=== PATIENT | male | born 1950 | race Caucasian/White ===

== ENCOUNTER → 2017-12-16 | Outpatient (CLI) | payer BC ==
[~2017-12-16] MED LIST: AMT25 PO; CELE1CAP30 PO; HYDR-5688 PO; MULT-506 PO; PRAV40TA2 PO
== END | disposition home or self-care (01) ==
LOC: C.LAB 13:05
PROVIDERS: ATTEND Family Medicine Adolescent Medicine
DX: M25.50 Pain in unspecified joint (principal); R51 Headache

== ENCOUNTER → 2018-05-17 | Outpatient (CLI) | payer BC | END | disposition home or self-care (01) | LOC: C.RDSM 10:08 | PROVIDERS: ATTEND Orthopaedic Surgery | DX: R52 Pain, unspecified (principal) ==

== ENCOUNTER 2022-10-02 14:18 | Inpatient (IN) ==
[2022-10-02] MEDS ORDERED: NITROGLYCERIN SL 0.4 MG/TAB TAB SL STA (14:55)
[2022-10-02 15:03] LABS: Basophils # (auto) 0.07 K/uL (0-0.2); Eosinophils # (auto) 0.03 K/uL (0-0.50); Eosinophils % (auto) 0.4 %; Hematocrit (blood only) 40.2 % (40.1-51.0); Immature Granulocytes # (auto) 0.02 K/uL (0.00-0.02); Immature Granulocytes % (auto) 0.3 %; Lymphocytes # (auto) 2.02 K/uL (1.2-3.4); Lymphocytes % (auto) 28.6 %; Mean Corpuscular Hgb Conc 34.8 g/dL (32.0-36.0); Mean Platelet Volume 9.9 fL (9.4-12.4); Monocytes # (auto) 0.46 K/uL (0.24-0.82); Monocytes % (auto) 6.5 %; Neutrophils # (auto) 4.46 K/uL (1.4-6.5); Neutrophils % (auto) 63.2 %; Platelet Count 212 K/uL (130-400); RDW Coefficient of Variation 12.1 % (11.5-14.5); RDW Standard Deviation 40.8 fL (36.4-46.3); Red Blood Count 4.37 M/uL (4.63-6.08); White Blood Count 7.06 K/ul (4.8-10.8)
--- NOTE | 2022-10-02 15:13 | XRay Report ---
SINGLE VIEW CHEST CLINICAL HISTORY: Atypical chest pain. FINDINGS: 2 AP, portable, upright chest radiographs are compared to study dated 10/09/2011 and correl ated with chest CT dated 06/06/2016. The examination is degraded by portable technique and apical lord otic positioning. The heart is mildly enlarged. The pulmonary vasculature is noncongested. Chronic in terstitial thickening is similar to previous. There is bibasilar scarring/atelectasis. The lungs and pleural spaces are otherwise clear. No pneumothorax is seen. The skeletal structures are osteopenic. There are healed left-sided rib fractures. IMPRESSION: Mild cardiomegaly with no acute cardiopulmonary abnormality identified. ACT 112: Negative or not required by law. Electronically signed by: Loi Vann M.D. 10/02/2022 3:12 PM
[2022-10-02 15:14] LABS: Partial Thromboplastin Time 28.5 Seconds (21.0-31.0); Prothrombin Time 10.3 Seconds (9.0-12.0)
--- NOTE | 2022-10-02 15:26 | Emergency Department Note ---
Impression & Plan Hypertension, Left-sided chest pain, Elevated troponin ED Provider Note INFORMANT: Patient ED PROVIDER(S): Ryley Melendez MD CHIEF COMPLAINT: Chest pain PLAN: Disposition: Admitted Condition: Good Outpatient prescription management: none Referral: None patient CBC and chemistry panel were unremarkable. Patient's troponin was MEDICAL DECISION MAKING: Patient presented because of left-sided chest pain. He was hypertensive. Patient was treated with sublingual nitroglycerin. He took 2 aspirin at home. His ECG did not show any acute ischemia. The patient had a negative chest x- ray. Mildly elevated. On reassessment the sublingual nitroglycerin did relieve him of all have his chest pain. He was given Nitropaste. In light of the history and abnormal troponin further management in the hospital will be necessary. Consultation was made with [facility]. Patient was evaluated in the ER for further management. Triage Nursing notes reviewed and agree them. Vital Signs: reviewed and remarkable for hypertension Differential diagnosis: Cardiac ischemia, aortic dissection, pulmonary embolism, pneumothorax, pneumonia, pericarditis, myocarditis, esophageal rupture, GERD, cholecystitis, pancreatitis, musculoskeletal, as well as other pathologies. Diagnostics interpreted by me: ECG: Twelve-lead ECG reveals sinus rhythm with a first-degree AV block and occasional PVCs noted. No ST elevation or depression. Normal intervals. Normal axis. Cardiac Monitoring: Cardiac monitoring ordered by me: The patient was placed on continuous cardiac monitoring and observed. It revealed a normal sinus rhythm at 94 beats per minute without evidence of dysrhythmia. Imaging studies: Chest x-ray. Findings: A chest x-ray was performed and revealed no pneumothorax, effusion, infiltrate, pulmonary edema, free air under the diaphragm, or wide mediastinum. HPI: The patient is a 72year old male who presents to the Emergency Room with complaints of left sided chest pain. This started this morning and is persisting. Pain was worse and has diminished somewhat. The patient also notes the following associated symptoms, left arm pain and upper back pain. The pat ient has taken 2 baby aspirin for 7 relieving factors. Current pain is rated as 7/10. Pain occurred while walking. Patient notes pain increases with walking up steps. Pt denies LOC, headache, fevers, chills, diaphoresis, visual changes, neck pain, breathing difficulties, nausea, vomiting, abdominal pain, back pain, melena, hematochezia, urinary symptoms, numbness, weakness, lymphadenopathy, betty h, or other complaints. ROS: See above HPI for pertinent positives & negatives. A total of 10 systems reviewed and were otherwise negative. PAST MEDICAL HISTORY:See Below , hypertension, traumatic pneumothorax PAST SURGICAL HISTORY:See Below, FAMILY HISTORY:See Below SOCIAL HISTORY:See Below, HOME MEDICATIONS:See Below ALLERGIES:See Below VITALS:See Below PHYSICAL EXAMINATION: GENERAL: Awake, alert, well-appearing, in no distress HENT: Normocephalic, atraumatic. Oropharynx unremarkable. EYES: Normal conjunctiva. Sclera non-icteric. NECK: Inspection normal. Non-tender. Supple. No nuchal rigidity. FROM. No masses. RESPIRATORY: Clear to auscultation. No wheezes. No rales. Normal respiratory effort. CARDIAC: Normal rate. Normal rhythm. No murmurs. No rubs. Extremities warm and well perfused. Pulses equal. No JVD. GI: Soft, non-distended. No tenderness to palpation. No rebound or guarding. No masses. RECTAL: Deferred. MUSCULOSKELETAL: Atraumatic. Chest examination reveals no tenderness. The back is symmetrical on inspection without obvious abnormality. There is no CVA tenderness to palpation. No joint edema. LOWER EXTREMITIES: Calves are equal size bilaterally and non-tender. No edema. No discoloration. NEURO: Normal sensorium. No sensory or motor deficits noted. SKIN: No rash or jaundice noted. Ryley Melendez MD Past Med/Surg History Medical History (Updated 10/02/22 @ 16:50 by Ryley Melendez MD) Hyperlipidemia Hypertension BORDERLINE Migraine Sciatica Surgical History (Updated 12/05/19 @ 09:07 by Annabel Carpenter RN) H/O hand surgery Left/Right History of colonoscopy History of elbow surgery RT/LEFT History of tooth extraction History of total knee replacement RT/LEFT Hx of LASIK Hx of vasectomy Trigger finger X 2 REPAIRED Family History (Updated 11/07/18 @ 09:21 by Marlin Nichole RN) Sister Family history of diabetes mellitus Social History (Updated 12/05/19 @ 09:09 by Annabel Carpenter RN) Smoking Status: Never smoker Second Hand Exposure: Yes; Hx Alcohol Use: Yes Alcohol type: beer Hx Substance Use: Yes Substance Use Type Other:: history Preferred Language: Frisian Communication Ability: Effective Environmental Protection Inspector Required: No Beliefs That Will Affect Care: None marital status: Current Living Situation: Spouse current occupational status: retired Feels Safe at Home: Yes Assistive Devices: None Allergies Allergies Allergy/AdvReac Type Severity Reaction Status Date / Time pollen extracts Allergy Intermediate ITCHY Verified 10/02/22 15:52 EYES, SNEEZING, CONGESTION thimerosal Allergy Intermediate EYE Verified 10/02/22 15:52 IRRITATION Home Meds Home Medications Medication Instructions Recorded Confirmed diclofenac sodium 75 mg 75 mg PO BID 11/07/18 10/02/22 tablet,delayed release pravastatin 40 mg tablet 40 mg PO HS 11/07/18 10/02/22 amitriptyline 100 mg tablet 100 mg PO HS 10/02/22 10/02/22 fluticasone propionate 50 2 spray intranasal DAILY 10/02/22 10/02/22 mcg/actuation nasal spray,suspension lisinopril 40 mg tablet 40 mg PO QAM 10/02/22 10/02/22 multivitamin 1 tab PO QAM 10/02/22 10/02/22 psyllium husk 0.52 gram capsule 0.52 g PO DAILY 10/02/22 10/02/22 Results & Data (ED) Vital Signs Vital Signs - 24 hr 10/02/22 14:19 Temperature 36.7 C Temperature Source Temporal Artery Scan Pulse Rate 94 H Respiratory Rate 18 Respiratory Effort / Characteristics Non-Labored Spontaneous Respiratory Depth Normal Respiratory Pattern Regular Blood Pressure 174/89 H Blood Pressure Mean 117 Blood Pressure Position Sitting Pulse Oximetry 96 Oxygen Delivery Method Room Air Sepsis Recent Fever Within 48 Hours No Sepsis New/Unexplained Change in Mental Status No Sepsis Action Taken by Nursing No Action Required Laboratory Data Result diagrams: 10/02/22 14:36 10/02/22 14:36 Lab Results 10/02/22 10/02/22 10/02/22 Range/Units 14:36 14:36 14:36 WBC 7.06 (4.8-10.8) K/ul RBC 4.37 L (4.63-6.08) M/uL Hgb 14.0 (14.0-18.0) g/dl Hct 40.2 (40.1-51.0) % MCV 92.0 (80.0-100.0) fL MCH 32.0 (25.0-34.0) pg MCHC 34.8 (32.0-36.0) g/dL RDW Std Deviation 40.8 (36.4-46.3) fL RDW Coeff of Suzy 12.1 (11.5-14.5) % Plt Count 212 (130-400) K/uL MPV 9.9 (9.4-12.4) fL Immature Gran % (Auto) 0.3 % Neut % (Auto) 63.2 % Lymph % (Auto) 28.6 % Kleberg % (Auto) 6.5 % Eos % (Auto) 0.4 % Baso % (Auto) 1.0 % Neut # (Auto) 4.46 (1.4-6.5) K/uL Lymph # (Auto) 2.02 (1.2-3.4) K/uL Kleberg # (Auto) 0.46 (0.24-0.82) K/uL Eos # (Auto) 0.03 (0-0.50) K/uL Baso # (Auto) 0.07 (0-0.2) K/uL Immature Gran # (Auto) 0.02 (0.00-0.02) K/uL PT 10.3 (9.0-12.0) Seconds INR 1.0 (0.9-1.1) APTT 28.5 (21.0-31.0) Seconds PTT Ratio 1.0 Sodium 137 (136-145) mmol/L Potassium 3.8 (3.5-5.1) mmol/L Chloride 105 (98-107) mmol/L Carbon Dioxide 23 (21-32) mmol/L Anion Gap 9 (3-11) BUN 26 H (6-23) mg/dl Creatinine 1.47 H (0.6-1.4) mg/dl Est Cr Clr Drug Dosing 64.8 ml/min Est GFR ( Amer) 55.2 ml/min Est GFR (Non-Af Amer) 47.7 ml/min BUN/Creatinine Ratio 17.7 (10-20) Glucose 131 H (70-99(Fasting)) mg/dl Calcium 9.1 (8.5-10.1) mg/dl Total Bilirubin 0.4 (0.2-1.0) mg/dl AST 21 (13-39) U/L ALT 29 (7-52) U/L Alkaline Phosphatase 81 (34-104) U/L Troponin I High Sens 43.5 H (0-20) pg/ml Total Protein 7.4 (6.0-8.3) gm/dl Albumin 4.4 (3.4-5.0) gm/dl Globulin 3.0 (2.5-4.0) gm/dl Albumin/Globulin Ratio 1.5 (0.9-2) SARS-CoV-2, RNA, NAAT (NEGATIVE) 10/02/22 Range/Units 16:00 WBC (4.8-10.8) K/ul RBC (4.63-6.08) M/uL Hgb (14.0-18.0) g/dl Hct (40.1-51.0) % MCV (80.0-100.0) fL MCH (25.0-34.0) pg MCHC (32.0-36.0) g/dL RDW Std Deviation (36.4-46.3) fL RDW Coeff of Suzy (11.5-14.5) % Plt Count (130-400) K/uL MPV (9.4-12.4) fL Immature Gran % (Auto) % Neut % (Auto) % Lymph % (Auto) % Kleberg % (Auto) % Eos % (Auto) % Baso % (Auto) % Neut # (Auto) (1.4-6.5) K/uL Lymph # (Auto) (1.2-3.4) K/uL Kleberg # (Auto) (0.24-0.82) K/uL Eos # (Auto) (0-0.50) K/uL Baso # (Auto) (0-0.2) K/uL Immature Gran # (Auto) (0.00-0.02) K/uL PT (9.0-12.0) Seconds INR (0.9-1.1) APTT (21.0-31.0) Seconds PTT Ratio Sodium (136-145) mmol/L Potassium (3.5-5.1) mmol/L Chloride (98-107) mmol/L Carbon Dioxide (21-32) mmol/L Anion Gap (3-11) BUN (6-23) mg/dl Creatinine (0.6-1.4) mg/dl Est Cr Clr Drug Dosing ml/min Est GFR ( Amer) ml/min Est GFR (Non-Af Amer) ml/min BUN/Creatinine Ratio (10-20) Glucose (70-99(Fasting)) mg/dl Calcium (8.5-10.1) mg/dl Total Bilirubin (0.2-1.0) mg/dl AST (13-39) U/L ALT (7-52) U/L Alkaline Phosphatase (34-104) U/L Troponin I High Sens (0-20) pg/ml Total Protein (6.0-8.3) gm/dl Albumin (3.4-5.0) gm/dl Globulin (2.5-4.0) gm/dl Albumin/Globulin Ratio (0.9-2) SARS-CoV-2, RNA, NAAT NEGATIVE (NEGATIVE) Administered Medications Discontinued Medications Nitroglycerin (Nitroglycerin Sl 0.4 Mg/Tab Tab) 0.4 mg SL NOW STA Stop: 10/02/22 14:56 Last Admin: 10/02/22 15:05 Dose: 0.4 mg Documented By: MANOLO Nitroglycerin (Nitroglycerin 2% Ointment 30gm Tube) 0.5 inch EXT NOW STA Stop: 10/02/22 15:40 Last Admin: 10/02/22 16:00 Dose: 0.5 inch Documented By: MANOLO Imaging Data Radiologist's Impression: Chest X-Ray 10/02/22 14:33 SINGLE VIEW CHEST CLINICAL HISTORY: Atypical chest pain. FINDINGS: 2 AP, portable, upright chest radiographs are compared to study dated 10/09/2011 and correlated with chest CT dated 06/06/2016. The examination is degraded by portable technique and apical lordotic positioning. The heart is mildly enlarged. The pulmonary vasculature is noncongested. Chronic interstitial thickening is similar to previous. There is bibasilar scarring/atelectasis. The lungs and pleural spaces are otherwise clear. No pneumothorax is seen. The skeletal structures are osteopenic. There are healed left-sided rib fractures. IMPRESSION: Mild cardiomegaly with no acute cardiopulmonary abnormality identified. ACT 112: Negative or not required by law. Electronically signed by: Loi Vann M.D. 10/02/2022 3:12 PM Discharge Plan Visit Data Chief Complaint: Chest Pain Stated Complaint: CHEST PAIN ED Provider: Ryley Melendez Discharge Problem: Hypertension, Left-sided chest pain, Elevated troponin Forms Stand Alone Forms: [facility] Prescriptions Prescriptions: No Action pravastatin 40 mg Tablet 40 mg PO HS diclofenac sodium 75 mg Tablet,Delayed Release (Dr/Ec) 75 mg PO BID multivitamin Tablet 1 tab PO QAM lisinopril 40 mg tablet 40 mg PO QAM fluticasone propionate [Flonase] 50 mcg/actuation [place],Suspension 2 spray INTRANASAL DAILY Rx Instructions: administer into each nostril amitriptyline 100 mg tablet 100 mg PO HS psyllium husk [Metamucil] 0.52 gram Capsule 0.52 g PO DAILY Referrals Referrals: Lorena Magallon PA-C [Primary Care Provider] -
[2022-10-02 15:30] LABS: Troponin I High Sensitivity 43.5 pg/ml (0-20)
[2022-10-02 15:32] LABS: Albumin Globulin Ratio 1.5 (0.9-2); Albumin Level 4.4 gm/dl (3.4-5.0); BUN Creatinine Ratio 17.7 (10-20); Bilirubin,Total 0.4 mg/dl (0.2-1.0); Calcium 9.1 mg/dl (8.5-10.1); Creatinine Clr Calc Pharmacy 64.8 ml/min; Est GFR (African American) 55.2 ml/min; Est GFR (Non-African American) 47.7 ml/min; Potassium 3.8 mmol/L (3.5-5.1); Total Protein 7.4 gm/dl (6.0-8.3)
[2022-10-02] MEDS ORDERED: NITROGLYCERIN 2% OINTMENT 30GM TUBE EXT STA (15:39)
--- NOTE | 2022-10-02 16:01 | History & Physical Report ---
Date of Service October 02, 2022 Assessment & Plan (1) Left-sided chest pain: Plan: - Sudden onset chest pain with radiation to back, left arm worse with exertion, better with rest and Nitropaste concerning for cardiac disease. - Initial troponin 43, repeat pending. No territorial ST segment or T wave changes. - Patient will be brought in under observation status to the medical telemetry unit to trend troponin, echo in a.m. and cardiology consult. - Will check lipids, A1c w/ morning labs. - For now, continue lisinopril and pravastatin. (2) Hypertension: Plan: - Continue lisinopril, his creatinine is 1.47, unknown baseline. - Continue to monitor renal function, continue holding lisinopril if worsening. (3) Hypercholesteremia: Plan: - Continue pravastatin, will check lipid panel in a.m. and consider increasing statin dose as needed. (4) Migraine: Plan: - Continue amitriptyline. Plan - Admit to medicine w/ telemetry. - SCDs for VTE PPx. - Full code. History of Present Illness Chief Complaint: Chest pain this morning Primary Care Provider: Lorena Magallon PA-C Delvin Holt is a 72-year-old male with past medical history of hypertension and hyperlipidemia is presenting today with left-sided chest pain. Patient was walking his home this morning when he had onset of left-sided chest pain that went between his shoulder blades with numbness down his left arm, possibly right. Initially got worse with exertion while walking upstairs, somewhat alleviated with resting. He had no shortness of breath, palpitations, or lightheadedness with it. He took two 81-mg aspirin tabs. The pain was initially a 7/10, but came down to 2/10 after sublingual nitroglycerin and is 0/10 after Nitropaste is applied. He is currently chest pain-free. 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 He had previously been feeling well without any fever/chills, weight gain and legs or abdomen, shortness of breath, respiratory illness. He was recently diagnosed with Lyme disease and finished a course of oral antibiotics 1.5 weeks ago. He feels he is recovered from this. He notes he has been told he has a murmur of his tricuspid valve, he has had a stress test several months ago done for heart palpitations, which to his knowledge was unremarkable. Initial lab significant for troponin of 43, troponin 1.47, unknown baseline. Repeat troponin is pending. EKG shows first-degree AV block and PVCs, CXR shows mild cardiomegaly without any acute process. Allergies Allergy/AdvReac Type Severity Reaction Status Date / Time pollen extracts Allergy Intermediate ITCHY Verified 10/02/22 15:52 EYES, SNEEZING, CONGESTION thimerosal Allergy Intermediate EYE Verified 10/02/22 15:52 IRRITATION Home Medications Medication Instructions Recorded Confirmed Type diclofenac sodium 75 mg 75 mg PO BID 11/07/18 10/02/22 History tablet,delayed release pravastatin 40 mg tablet 40 mg PO HS 11/07/18 10/02/22 History amitriptyline 100 mg tablet 100 mg PO HS 10/02/22 10/02/22 History fluticasone propionate 50 2 spray intranasal DAILY 10/02/22 10/02/22 History mcg/actuation nasal spray,suspension lisinopril 40 mg tablet 40 mg PO QAM 10/02/22 10/02/22 History multivitamin 1 tab PO QAM 10/02/22 10/02/22 History psyllium husk 0.52 gram capsule 0.52 g PO DAILY 10/02/22 10/02/22 History Past Med/Surg History Medical History (Updated 10/03/22 @ 10:16 by Reagan Modi MD) Hyperlipidemia Hypertension BORDERLINE Migraine Sciatica Surgical History H/O hand surgery Left/Right History of colonoscopy History of elbow surgery RT/LEFT History of tooth extraction History of total knee replacement RT/LEFT Hx of LASIK Hx of vasectomy Trigger finger X 2 REPAIRED Family History Sister Family history of diabetes mellitus Social History Smoking Status: Never smoker Second Hand Exposure: Yes; Hx Alcohol Use: No Hx Substance Use: No Preferred Language: Azeri Communication Ability: Effective Instructional Paraprofessional Required: No Beliefs That Will Affect Care: None marital status: Current Living Situation: Spouse current occupational status: retired Feels Safe at Home: Yes Assistive Devices: None Review of Systems Review of Systems: Constitutional: No fever/chills, weakness, fatigue, myalgias, anorexia, night sweats Eyes: No diplopia, no worsening or blurred vision ENT: normal hearing, no trouble swallowing Respiratory: No cough, sputum, dyspnea at rest or on exertion Cardiovascular: Chest pain with radiation to back, left arm numbness with exertion today, alleviated with rest, Nitropaste Abdomen: No pain, nausea, vomiting, diarrhea or constipation : Denies dysuria, hematuria, increased urgency/frequency, urinary retention Musculoskeletal: No joint pain, calf pain, swelling Neurologic: No weakness, numbness/tingling, or balance problems Psychiatric: No anxiety or depression Skin: No rash or itch Physical Exam Physical Exam: General: awake, alert, no apparent distress Head: Normocephalic, atraumatic ENT: PERRL, EOMI, no pharyngeal exudate, mucous membranes moist Chest: Clear to auscultation, on room air, no adventitious breath sounds Cardiac: Regular rate and rhythm, no murmur, no JVD, normal peripheral pulses, good capillary refill Abdominal: NABS x 4 quadrants, soft, nontender to palpation, no rebound, guarding or tenderness Extremities: Normal inspection, no peripheral edema or erythema, calfs nontender to palpation Psych: Normal mood and affect Neuro: AAO x 3, strength intact bilaterally and rated 5/5, no motor deficits, speech is clear, no peripheral sensory deficits Skin: no rash or erythema Results & Data Results & Data ([facility]) Vital Signs (Past 12 Hours) Vital Signs Temp Pulse Resp BP Pulse Ox O2 Del Method 10/02/22 14:19 36.7 C 94 H 18 174/89 H 96 Room Air Laboratory Results Abnormal lab results 10/02/22 10/02/22 Range/Units 14:36 14:36 RBC 4.37 L (4.63-6.08) M/uL BUN 26 H (6-23) mg/dl Creatinine 1.47 H (0.6-1.4) mg/dl Glucose 131 H (70-99(Fasting)) mg/dl Troponin I High Sens 43.5 H (0-20) pg/ml Diagnostic Findings Chest X-Ray 10/02/22 14:33 SINGLE VIEW CHEST CLINICAL HISTORY: Atypical chest pain. FINDINGS: 2 AP, portable, upright chest radiographs are compared to study dated 10/09/2011 and correlated with chest CT dated 06/06/2016. The examination is degraded by portable technique and apical lordotic positioning. The heart is mildly enlarged. The pulmonary vasculature is noncongested. Chronic interstitial thickening is similar to previous. There is bibasilar scarring/atelectasis. The lungs and pleural spaces are otherwise clear. No pneumothorax is seen. The skeletal structures are osteopenic. There are healed left-sided rib fractures. IMPRESSION: Mild cardiomegaly with no acute cardiopulmonary abnormality identified. ACT 112: Negative or not required by law. Electronically signed by: Loi Vann M.D. 10/02/2022 3:12 PM ECG Additional Comments: Sinus rhythm with 1st degree A-V block with occasional Premature ventricular complexes Otherwise normal ECG When compared with ECG of 02-NOV-2015 10:32, Premature ventricular complexes are now Present VT interval has increased. Code Status & VTE Plan Code Status Full Code. Supervising Physician Co-Signing Physician Notes I personally saw and examined the patient. I verified all larios points and agree with Krista Cheung PA-C with the following exceptions and/or additions: 72-year-old male who presents with typical exertional chest pain with associated shortness of breath concerning for acute coronary syndrome. O/E A&Ox3, HS1+2. no murmurs, Chest CTAB, Abdo SNT Acute coronary syndrome - Mild troponin increased from 43 -> 62 suggests more unstable angina than NSTEMI. ASA 324mg total given. Start metoprolol 25mg PO BID. Continue pravastatin but may need increasing to high intensity statin if ACS is confirmed. Discussed benefits and risks of intravenous heparin and since he is chest pain-free with troponin less than 100 after 6 hours and no ischemic EKG changes we will currently hold on this. Given current blood pressure and to avoid further ischemia overnight will start on nitroglycerin 1 inch paste. Bed rest. TTE. NPO after midnight. Consult cardiology for catheterization tomorrow. PG Care Time/CCT Total # of Minutes Spent Total Time Spent with Patient: Total time spent is greater than 50% in coordination of care (as documented) at patient's floor/unit and/or counseling patient: Coding Level of Care Code INT OBSERVATION CARE 72M LVL 3 Diagnoses Left-sided chest pain R07.9 Hypertension I10 Hypercholesteremia E78.00 Migraine G43.909
[2022-10-02] MEDS ORDERED: ASPIRIN 81 MG ECTAB PO STA (17:19)
[2022-10-02] MEDS ORDERED: NITROGLYCERIN 2% OINTMENT 30GM TUBE EXT PRN (18:47)
[2022-10-02] MEDS ORDERED: POLYETHYLENE (MIRALAX) 17 GM PACK PO PRN (18:47)
[2022-10-02] MEDS ORDERED: MoRPHine SULFATE 2 MG/ML CARP IV PRN (18:47)
[2022-10-02] MEDS ORDERED: ONDANSETRON INJ 2 MG/ML 2 ML VIAL IV PRN (18:47)
[2022-10-02] MEDS ORDERED: LACTATED RINGER'S 1,000 ML IV SCH (19:00)
[2022-10-02] MEDS: NITROGLYCERIN 2% OINTMENT 30GM TUBE EXT SCH (20:00)
[2022-10-02] MEDS ORDERED: POTASSIUM CHLORIDE CRTAB 20 MEQ TABCR PO STA (20:04)
[2022-10-02] MEDS: AMITRIPTYLINE HCL 100 MG TAB PO SCH (20:52)
[2022-10-02] MEDS: METOPROLOL TARTRATE 25 MG TAB PO SCH (20:53)
[2022-10-02] MEDS: PRAVASTATIN SOD 40 MG TAB PO SCH (20:53)
[2022-10-02] MEDS ORDERED: DICLOFENAC SODIUM 75 MG TABCR PO SCH (21:00)
[2022-10-03] MEDS: NITROGLYCERIN 2% OINTMENT 30GM TUBE EXT SCH ×4 (04:02→18:12)
[2022-10-03 06:27] LABS: Basophils # (auto) 0.08 K/uL (0-0.2); Basophils % (auto) 0.8 %; Eosinophils # (auto) 0.12 K/uL (0-0.50); Eosinophils % (auto) 1.2 %; Hematocrit (blood only) 36.3 % (40.1-51.0); Hemoglobin 12.3 g/dl (14.0-18.0); Immature Granulocytes # (auto) 0.03 K/uL (0.00-0.02); Immature Granulocytes % (auto) 0.3 %; Lymphocytes # (auto) 2.16 K/uL (1.2-3.4); Lymphocytes % (auto) 21.1 %; Mean Corpuscular Hemoglobin 32.1 pg (25.0-34.0); Mean Corpuscular Hgb Conc 33.9 g/dL (32.0-36.0); Mean Corpuscular Volume 94.8 fL (80.0-100.0); Mean Platelet Volume 9.9 fL (9.4-12.4); Monocytes # (auto) 0.83 K/uL (0.24-0.82); Monocytes % (auto) 8.1 %; Neutrophils # (auto) 7.01 K/uL (1.4-6.5); Neutrophils % (auto) 68.5 %; Platelet Count 189 K/uL (130-400); RDW Coefficient of Variation 12.4 % (11.5-14.5); Red Blood Count 3.83 M/uL (4.63-6.08); White Blood Count 10.23 K/ul (4.8-10.8)
[2022-10-03 06:35] LABS: Anion Gap 5 (3-11); BUN Creatinine Ratio 17.2 (10-20); Blood Urea Nitrogen 21 mg/dl (6-23); Calcium 8.8 mg/dl (8.5-10.1); Carbon Dioxide 26 mmol/L (21-32); Chloride 105 mmol/L (98-107); Cholesterol 221 mg/dl (0-200); Est GFR (African American) 69.2 ml/min; Est GFR (Non-African American) 59.7 ml/min; Glucose 100 mg/dl (70-99(Fasting)); HDL Cholesterol 26 mg/dl; Magnesium 1.9 mg/dl (1.7-2.4); Potassium 4.5 mmol/L (3.5-5.1); Sodium 136 mmol/L (136-145); Triglycerides 719 mg/dl (0-150)
[2022-10-03 06:37] LABS: Chol HDL Ratio 8.5 (0-5)
[2022-10-03 06:41] LABS: Troponin I High Sensitivity 127.4 pg/ml (0-20)
[2022-10-03 07:10] LABS: Estimated Average Glucose 114 mg/dl; Hemoglobin A1C 5.6 % (4.5-5.6)
[2022-10-03] MEDS: ACETAMINOPHEN 325 MG TAB PO PRN (08:41)
--- NOTE | 2022-10-03 09:01 | XCELERA ---
[id number] \\[id number]
[2022-10-03] MEDS: FLUTICASONE PROPIONATE NA SPR 16 GM BTL SCH (09:13)
[2022-10-03] MEDS: METOPROLOL TARTRATE 25 MG TAB PO SCH ×2 (09:13→20:40)
[2022-10-03] MEDS: PSYLLIUM or GUAR GUM FIBER POWDER PACKET PO SCH ×2 (09:13→09:35)
[2022-10-03] MEDS: lisinopril 40 MG TAB PO SCH (09:13)
[2022-10-03] MEDS: MULTIVITAMIN TAB PO SCH (09:13)
--- NOTE | 2022-10-03 10:06 | Cardiology Consultation ---
Date of Consultation October 03, 2022 Assessment & Plan (1) Acute coronary syndrome: (2) Hypertension: (3) Elevated troponin: (4) Hypercholesteremia: Plan ASSESSMENT/PLAN: 1. Acute coronary syndrome: Presentation concerning for acute coronary syndrome. Continues to have exertional chest discomfort but at rest no symptoms. Troponin has peaked at 160. Will give aspirin today. Recommend cardiac catheterization. If catheterization is delayed, recommend heparin drip. Agree with beta-derek. Recommend high-intensity statin therapy and found to have CAD. Risks and benefits of catheterization discussed with he and his . They were made aware that CT surgery is not available at this facility. He is agreeable to proceed. 2. Hypertension: Blood pressure has been normotensive to mildly hypertensive. Beta-derek added this morning. Continue ELKE-inhibitor. 3. Dyslipidemia: Will add direct LDL to labs. Triglycerides significantly elevated. Triglycerides remain elevated with more aggressive statin therapy, specific therapy for hypertriglyceridemia may be warranted. Mediterranean diet. 4. Elevated troponin: Cardiac catheterization as above. 5. Disposition: Plan of care communicated with Irene Cornejo of the primary hospitalist service. Highly complex medical issues. Thank you for allowing me to participate in the care of your patient. Please call for any other questions or concerns. Sincerely, Tom Modi M.D. History of Present Illness Reason for Consultation: Chest pain Requesting Physician: Krista Cheung Attending Physician: Reagan Curry History of Present Illness Mr. Holt is a very pleasant 72-year-old gentleman with a history significant for hypertension and dyslipidemia. He presented to [facility] on 10/02/2022 with chest discomfort. While walking in his home, he developed exertional intrascapular pain, however only stress and the substernal tends squeezing sensation. He noted bilateral arm tingling. The symptoms occurred approximately 10:00 a.m. on 10/02/2022. The chest discomfort would wax and wane until he received nitroglycerin 3-4 hours later which completely resolved symptoms. Even while hospitalized, if he gets out of bed to use the restroom or move about his room, the substernal chest squeezing would recur. He was chest pain-free at the time of our meeting this morning. This is a new symptom. He underwent a stress echo in the spring, likely through the [email or web address] system but the prompting symptom was palpitations. He was not experiencing chest discomfort at that time. He admits that he had Lyme disease in early August and was treated with 2 weeks of doxycycline. He denies melena, hematochezia, hematuria, edema, syncope, near-syncope, orthopnea, or recent fevers, nausea, or vomiting. On arrival, initial high sensitivity troponin was 43.5 but increased to 160.2 for a peak overnight. Review of systems: As above. Review of systems otherwise negative/unremarkable. Family history: Father at 68 from presumed [place]. Social history: Denies smoking, alcohol, or drug abuse. Lives at home with his . Has 1 daughter (RN) who lives in [place]. Two stepchildren. 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 He was unaccompanied in the emergency department Allergies Allergy/AdvReac Type Severity Reaction Status Date / Time pollen extracts Allergy Intermediate ITCHY Verified 10/02/22 15:52 EYES, SNEEZING, CONGESTION thimerosal Allergy Intermediate EYE Verified 10/02/22 15:52 IRRITATION Home Medications Medication Instructions Recorded Confirmed Type diclofenac sodium 75 mg 75 mg PO BID 11/07/18 10/02/22 History tablet,delayed release pravastatin 40 mg tablet 40 mg PO HS 11/07/18 10/02/22 History amitriptyline 100 mg tablet 100 mg PO HS 10/02/22 10/02/22 History fluticasone propionate 50 2 spray intranasal DAILY 10/02/22 10/02/22 History mcg/actuation nasal spray,suspension lisinopril 40 mg tablet 40 mg PO QAM 10/02/22 10/02/22 History multivitamin 1 tab PO QAM 10/02/22 10/02/22 History psyllium husk 0.52 gram capsule 0.52 g PO DAILY 10/02/22 10/02/22 History Patient History Medical History (Updated 10/03/22 @ 10:16 by Reagan Modi MD) Hyperlipidemia Hypertension BORDERLINE Migraine Sciatica Surgical History H/O hand surgery Left/Right History of colonoscopy History of elbow surgery RT/LEFT History of tooth extraction History of total knee replacement RT/LEFT Hx of LASIK Hx of vasectomy Trigger finger X 2 REPAIRED Family History Sister Family history of diabetes mellitus Social History Smoking Status: Never smoker Second Hand Exposure: Yes; Hx Alcohol Use: No Hx Substance Use: No Preferred Language: Occitan Communication Ability: Effective Elevator Inspector Required: No Beliefs That Will Affect Care: None marital status: Current Living Situation: Spouse current occupational status: retired Feels Safe at Home: Yes Assistive Devices: None Physical Exam Physical Exam: Gen.: No acute distress. Alert and oriented. HEENT: Anicteric sclera. Neck: No JVD. No bruits. Normal carotid upstrokes bilaterally. Cardiac: PMI was nondisplaced. No ventricular heave. Regular. Normal S1-S2. No murmurs, rubs, or gallops. Pulmonary: Clear to auscultation bilaterally without wheezes, rales, or rhonchi. Abdomen: Soft, nontender, nondistended, with normoactive bowel sounds. No bruits noted. Extremities: 2+ radial pulses bilaterally. 2+ posterior tibialis pulses bilaterally. No edema or cyanosis. No palpable cords. Psychiatric: Affect appears appropriate. Chest: Nontender to palpation. Results & Data ([facility]) Vital Signs (Past 12 Hours) Vital Signs Pulse Pulse Resp BP BP Pulse Ox O2 Del Method 10/03/22 07:53 81 18 131/78 98 Room Air 10/03/22 06:00 66 23 123/74 92 Room Air 10/03/22 05:04 66 18 141/85 H 93 Room Air 10/03/22 04:00 63 21 111/66 93 Room Air 10/03/22 03:00 62 18 121/72 94 Room Air 10/03/22 02:01 62 16 103/80 92 Room Air 10/03/22 01:00 68 26 H 123/79 92 Room Air 10/02/22 22:10 69 16 94 Room Air Laboratory Results Laboratory Results - last 24 hr 10/02/22 10/02/22 10/02/22 14:36 14:36 14:36 WBC 7.06 RBC 4.37 L Hgb 14.0 Hct 40.2 MCV 92.0 MCH 32.0 MCHC 34.8 RDW Std Deviation 40.8 RDW Coeff of Suzy 12.1 Plt Count 212 MPV 9.9 Immature Gran % (Auto) 0.3 Neut % (Auto) 63.2 Lymph % (Auto) 28.6 Bee % (Auto) 6.5 Eos % (Auto) 0.4 Baso % (Auto) 1.0 Neut # (Auto) 4.46 Lymph # (Auto) 2.02 Bee # (Auto) 0.46 Eos # (Auto) 0.03 Baso # (Auto) 0.07 Immature Gran # (Auto) 0.02 PT 10.3 INR 1.0 APTT 28.5 PTT Ratio 1.0 Sodium 137 Potassium 3.8 Chloride 105 Carbon Dioxide 23 Anion Gap 9 BUN 26 H Creatinine 1.47 H Est Cr Clr Drug Dosing 64.8 Est GFR ( Amer) 55.2 Est GFR (Non-Af Amer) 47.7 BUN/Creatinine Ratio 17.7 Glucose 131 H Estimat Average Glucose Hemoglobin A1c Calcium 9.1 Magnesium Total Bilirubin 0.4 AST 21 ALT 29 Alkaline Phosphatase 81 Troponin I High Sens 43.5 H Total Protein 7.4 Albumin 4.4 Globulin 3.0 Albumin/Globulin Ratio 1.5 Triglycerides Cholesterol LDL Cholesterol, Calc VLDL Cholesterol, Calc HDL Cholesterol Cholesterol/HDL Ratio Lipase SARS-CoV-2, RNA, NAAT 10/02/22 10/02/22 10/02/22 14:36 16:00 16:47 WBC RBC Hgb Hct MCV MCH MCHC RDW Std Deviation RDW Coeff of Suzy Plt Count MPV Immature Gran % (Auto) Neut % (Auto) Lymph % (Auto) Bee % (Auto) Eos % (Auto) Baso % (Auto) Neut # (Auto) Lymph # (Auto) Bee # (Auto) Eos # (Auto) Baso # (Auto) Immature Gran # (Auto) PT INR APTT PTT Ratio Sodium Potassium Chloride Carbon Dioxide Anion Gap BUN Creatinine Est Cr Clr Drug Dosing Est GFR ( Amer) Est GFR (Non-Af Amer) BUN/Creatinine Ratio Glucose Estimat Average Glucose Hemoglobin A1c Calcium Magnesium 1.8 Total Bilirubin AST ALT Alkaline Phosphatase Troponin I High Sens 62.0 H* D Total Protein Albumin Globulin Albumin/Globulin Ratio Triglycerides Cholesterol LDL Cholesterol, Calc VLDL Cholesterol, Calc HDL Cholesterol Cholesterol/HDL Ratio Lipase SARS-CoV-2, RNA, NAAT NEGATIVE 10/02/22 10/03/22 10/03/22 23:11 05:42 05:42 WBC RBC Hgb Hct MCV MCH MCHC RDW Std Deviation RDW Coeff of Suzy Plt Count MPV Immature Gran % (Auto) Neut % (Auto) Lymph % (Auto) Bee % (Auto) Eos % (Auto) Baso % (Auto) Neut # (Auto) Lymph # (Auto) Bee # (Auto) Eos # (Auto) Baso # (Auto) Immature Gran # (Auto) PT INR APTT PTT Ratio Sodium 136 Potassium 4.5 Chloride 105 Carbon Dioxide 26 Anion Gap 5 BUN 21 Creatinine 1.22 Est Cr Clr Drug Dosing 78.0 Est GFR ( Amer) 69.2 Est GFR (Non-Af Amer) 59.7 BUN/Creatinine Ratio 17.2 Glucose 100 H Estimat Average Glucose 114 Hemoglobin A1c 5.6 Calcium 8.8 Magnesium 1.9 Total Bilirubin AST ALT Alkaline Phosphatase Troponin I High Sens 160.2 H* D 127.4 H* D Total Protein Albumin Globulin Albumin/Globulin Ratio Triglycerides 719 H Cholesterol 221 H LDL Cholesterol, Calc TNP VLDL Cholesterol, Calc TNP HDL Cholesterol 26 Cholesterol/HDL Ratio 8.5 H Lipase SARS-CoV-2, RNA, NAAT 10/03/22 10/03/22 05:42 05:42 WBC 10.23 RBC 3.83 L Hgb 12.3 L Hct 36.3 L MCV 94.8 MCH 32.1 MCHC 33.9 RDW Std Deviation 43.0 RDW Coeff of Suzy 12.4 Plt Count 189 MPV 9.9 Immature Gran % (Auto) 0.3 Neut % (Auto) 68.5 Lymph % (Auto) 21.1 Bee % (Auto) 8.1 Eos % (Auto) 1.2 Baso % (Auto) 0.8 Neut # (Auto) 7.01 H Lymph # (Auto) 2.16 Bee # (Auto) 0.83 H Eos # (Auto) 0.12 Baso # (Auto) 0.08 Immature Gran # (Auto) 0.03 H PT INR APTT PTT Ratio Sodium Potassium Chloride Carbon Dioxide Anion Gap BUN Creatinine Est Cr Clr Drug Dosing Est GFR ( Amer) Est GFR (Non-Af Amer) BUN/Creatinine Ratio Glucose Estimat Average Glucose Hemoglobin A1c Calcium Magnesium Total Bilirubin AST ALT Alkaline Phosphatase Troponin I High Sens Total Protein Albumin Globulin Albumin/Globulin Ratio Triglycerides Cholesterol LDL Cholesterol, Calc VLDL Cholesterol, Calc HDL Cholesterol Cholesterol/HDL Ratio Lipase 34 SARS-CoV-2, RNA, NAAT Diagnostic Findings Echo 10/02/2022: Normal LV size, wall motion, systolic function. EF 55-60%. Mild AI. Normal RVSP. ECG 10/02/2022 personally reviewed: Sinus with PVCs 94 beats per minute. ECG 10/03/2022 at 9:02 a.m.: NSR 72 beats per minute. Chest x-ray 10/02/2022: No acute abnormality per Radiology. On personal review, no infiltrate or pleural effusion. Medications Administered Current Inpatient Medications Acetaminophen (Acetaminophen 325 Mg Tab) 650 mg PO Q4H PRN PRN Reason: Pain or Fever Stop: 11/01/22 18:46 Last Admin: 10/03/22 08:41 Dose: 650 mg Amitriptyline HCl (Amitriptyline Hcl 100 Mg Tab) 100 mg PO HS [facility] Stop: 11/01/22 20:59 Last Admin: 10/02/22 20:52 Dose: 100 mg Fluticasone Propionate (Fluticasone Propionate Na Spr 16 Gm Btl) 2 sprays NA DAILY [facility] Stop: 11/02/22 08:59 Last Admin: 10/03/22 09:13 Dose: 2 sprays Lisinopril (Lisinopril 40 Mg Tab) 40 mg PO QAM [facility] Stop: 11/02/22 08:59 Last Admin: 10/03/22 09:13 Dose: 40 mg Metoprolol Tartrate (Metoprolol Tartrate 25 Mg Tab) 25 mg PO BID [facility] Stop: 11/01/22 20:59 Last Admin: 10/03/22 09:13 Dose: 25 mg Morphine Sulfate (Morphine Sulfate 2 Mg/Ml Carp) 2 mg IV Q30M PRN PRN Reason: Chest Pain Stop: 10/16/22 18:46 Multivitamins (Multivitamin Tab) 1 tab PO QAM [facility] Stop: 11/02/22 08:59 Last Admin: 10/03/22 09:13 Dose: 1 tab Nitroglycerin (Nitroglycerin 2% Ointment 30gm Tube) 1 inch EXT Q6 [facility] Stop: 11/01/22 19:59 Last Admin: 10/03/22 07:42 Dose: 1 inch Ondansetron HCl (Ondansetron Inj 2 Mg/Ml 2 Ml Vial) 4 mg IV Q6H PRN PRN Reason: Nausea Stop: 11/01/22 18:46 Polyethylene Glycol (Polyethylene (Miralax) 17 Gm Pack) 17 gm PO DAILY PRN PRN Reason: Constipation Stop: 11/01/22 18:46 Pravastatin Sodium (Pravastatin Sod 40 Mg Tab) 40 mg PO HS [facility] Stop: 11/01/22 20:59 Last Admin: 10/02/22 20:53 Dose: 40 mg Psyllium Hydrophilic Mucilloid (Psyllium Or Guar Gum Fiber Powder Packet) 1 pkt PO DAILY [facility] Stop: 11/02/22 08:59 Last Admin: 10/03/22 09:35 Dose: Not Given PG Care Time/CCT Total # of Minutes Spent Total Time Spent with Patient: Total time spent is greater than 50% in coordination of care (as documented) at patient's floor/unit and/or counseling patient: Coding Level of Care Code 74246 Office/Outpt Visit, New Diagnoses Acute coronary syndrome I24.9 Hypertension I10 Elevated troponin R77.8 Hypercholesteremia E78.00
--- NOTE | 2022-10-03 10:08 | Pre Anesthesia Assessment ---
Date of Service October 03, 2022 Pre Sedation Assessment Vital Signs Temp Pulse Pulse Resp BP BP Pulse Ox 10/03/22 07:53 81 18 131/78 98 10/03/22 06:00 66 23 123/74 92 10/03/22 05:04 66 18 141/85 H 93 10/03/22 04:00 63 21 111/66 93 10/03/22 03:00 62 18 121/72 94 10/03/22 02:01 62 16 103/80 92 10/03/22 01:00 68 26 H 123/79 92 10/02/22 22:10 69 16 94 10/02/22 18:47 10/02/22 20:31 72 16 95 10/02/22 20:00 92 H 16 95 10/02/22 19:54 36.9 C 69 16 144/74 H 96 10/02/22 19:36 79 16 142/78 H 95 10/02/22 18:47 69 16 128/73 95 10/02/22 18:48 10/02/22 18:30 71 20 125/74 100 10/02/22 16:18 73 18 134/70 95 10/02/22 14:19 36.7 C 94 H 18 174/89 H 96 Pulse Ox O2 Del Method O2 Del Method 10/03/22 07:53 Room Air 10/03/22 06:00 Room Air 10/03/22 05:04 Room Air 10/03/22 04:00 Room Air 10/03/22 03:00 Room Air 10/03/22 02:01 Room Air 10/03/22 01:00 Room Air 10/02/22 22:10 Room Air 10/02/22 18:47 95 Room Air 10/02/22 20:31 Room Air 10/02/22 20:00 Room Air 10/02/22 19:54 Room Air 10/02/22 19:36 Room Air 10/02/22 18:47 Room Air 10/02/22 18:48 Room Air 10/02/22 18:30 Room Air 10/02/22 16:18 Room Air 10/02/22 14:19 Room Air Cardiovascular RRR, no murmur, no edema Respiratory normal respiratory effort, lungs clear to auscultation Pre-Sedation Airway Assessment Smoking Status: Never smoker Mallampati Class: III ASA: ASA3 NPO Status Date of Last Intake of Fluids: 10/03/22 Time of Last Intake of Fluids: 09:15 Last Oral Intake of Fluids Comment: sip with meds Date of Last Intake of Solid Food: 10/02/22 Time of Last Intake of Solid Foods: 21:00 Procedure Planning Contraindications for Sedation: none Current Medications Reviewed: Yes Notes The planned sedation has been discussed with the patient. Informed Consent was obtained. I have identified the patient, determined the appropriateness of sedation and have assessed the patient immediately prior to the procedure. All medicine(s) and interventions are by my order.
[2022-10-03] MEDS ORDERED: HEPARIN (PORCINE) 1000 UNIT/ML 10 ML (CATH LAB USE ONLY) ONE (10:35)
[2022-10-03] MEDS ORDERED: fentaNYL citrate 100 MCG/2 ML VIAL ONE ×2 (10:36→12:08)
[2022-10-03] MEDS ORDERED: niCARdipine HCL INJ 2.5 MG/ML 10 ML AMP ONE (10:36)
[2022-10-03] MEDS ORDERED: MIDAZOLAM HCL 1 MG/ML 2ML VIAL ONE ×3 (10:36→12:10)
[2022-10-03] MEDS ORDERED: ASPIRIN 81 MG CHEW ONE (10:37)
[2022-10-03] MEDS ORDERED: NITROGLYCERIN/D5W 100MCG/ML 20ML SYR ONE (10:37)
[2022-10-03] MEDS ORDERED: ADENOSINE IV SOLN 3 MG/ML 20 ML VIAL IV ONE (11:28)
--- NOTE | 2022-10-03 12:01 | Cardiac Catheterization ---
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 Cardiac Status Clinical evaluation leading to the procedure CAD Presenation: Unstable angina Anginal Classification: CCS IV Heart Failure: No Cardiogenic Shock within 24 Hours: No Cardiac Arrest within 24 Hours: No Imaging Studies Past 6 Months: Yes Stress Studies Past 6 Months: No Coronary Anatomy Dominant: Right Diagnostic Physicians Name: Reagan Modi MD Status: Elective Closure Device Percutaneous Entry Location: Radial Closure Device: Radial Band Recommendations: Management Recommendatons Cardiac Cath Procedure Full Procedure Date October 03, 2022 Pre-Procedure Diagnosis Pre-Procedure Diagnosis: Acute Coronary Syndrome AUC Score AUC Score: 8 Post-Procedure Diagnosis Post-Procedure Diagnosis: Severe CAD Procedure(s) Performed Procedure(s) Performed: Coronary Angiography and Left Heart Cath Outside Sales Representative Insurance Reagan Modi MD Deblocker(s) Graciela Estrada Estimated Blood Loss Estimated Blood Loss: < 25 ml Medication(s) Medication(s): Fentanyl, Heparin, Lidocaine 1%, Nicardipine and Versed Summary of Findings Procedures: 1. Coronary angiography 2. Left heart catheterization 3. Moderate sedation Indication: 72-year-old gentleman with hypertension and dyslipidemia who presented with chest discomfort and elevated troponins, suggestive of acute coronary syndrome. Coronary angiography: 1. Left main: Proximal left main 10-20%. 2. Left anterior descending: Early mid LAD 40%. Mid LAD 70%. Early distal LAD 50-70%. Severe diffuse CAD involving the distal LAD with 98% stenosis focally. Apical LAD 100% with [id number] collaterals. JANINA 2 flow within the distal LAD. Small diagonal vessel without significant CAD. 3. Circumflex: Ostial/proximal circumflex is hazy in appearance, with 50-70% CAD. Proximal circumflex large caliber. Mid to distal AV groove circumflex is very small caliber. Large OM branching vessel without significant CAD. 4. Right coronary artery: RCA is large and dominant. Proximal RCA 20-30%. Early mid RCA 30-40%. Diffuse luminal irregularities throughout. Mid PDA 80%. PL without significant CAD. Left heart catheterization: 1. Left ventriculography was not performed. 2. No aortic stenosis. 3. LVEDP 15 mmHg. Moderate sedation: 1. Sedation start time: 10:57 a.m. 2. Sedation end time: 11:24 a.m. Impression: 1. Severe CAD involving the mid, distal/apical LAD, including occluded apical LAD with [id number] collaterals. 2. Severe CAD involving mid PDA. 3. Possible severe CAD involving ostial/proximal circumflex. 4. Otherwise, nonobstructive CAD. 5. No significant aortic stenosis. 6. Mildly elevated left-sided filling pressure. Plan: 1. Dr. Smith of interventional Cardiology was asked to review images and consider PCI of the LAD with further investigation of the circumflex, with possible PCI. 2. Optimize medical therapy. 3. Risk factor modification. Hemodynamics Rest Ao:: 117/66 Final Ao: 119/64 LV: 116/6/15 Recommendations Recommendations: Management Recommendatons Specimens Specimens: None Radiation Exposure (mGy) 1126 mGy. Fluoro time 2.7 min. Contrast (mls) 75 ml Procedural Complication(s) None Disposition Remains in lab for interventional cardiology I attest to the content of the Intraoperative Record and any orders documented therein. Any exceptions are noted below. [facility] Card Cath Procedure Codes Cardiac Catheterization Procedure 1: Cardiovascular Cath Procedures: 59958 Coronaries and LHC (+/-LV) Moderate Sedation Procedure 1: Sedation/Anesthesia: 93875 Mod Sedation by the same physician;Init15 Min Child Age 5 & Up Procedure 2: Sedation/Anesthesia: 08406 Mod Sedation by the same physician; Ea [id number] Minutes PG Care Time/CCT Total # of Minutes Spent Total Time Spent with Patient: Total time spent is greater than 50% in coordination of care (as documented) at patient's floor/unit and/or counseling patient:
[2022-10-03] MEDS ORDERED: CLOPIDOGREL BISULFATE 300 MG TAB ONE (12:23)
--- NOTE | 2022-10-03 12:55 | Post Anesthesia Assessment ---
Date of Service October 03, 2022 Post Sedation Assessment Vital Signs Temp Pulse Pulse Resp BP BP Pulse Ox 10/03/22 12:40 68 16 130/70 98 10/03/22 10:12 66 20 154/76 H 97 10/03/22 10:11 78 18 143/82 H 95 10/03/22 07:53 81 18 131/78 98 10/03/22 06:00 66 23 123/74 92 10/03/22 05:04 66 18 141/85 H 93 10/03/22 04:00 63 21 111/66 93 10/03/22 03:00 62 18 121/72 94 10/03/22 02:01 62 16 103/80 92 10/03/22 01:00 68 26 H 123/79 92 10/02/22 22:10 69 16 94 10/02/22 18:47 10/02/22 20:31 72 16 95 10/02/22 20:00 92 H 16 95 10/02/22 19:54 98.4 F 69 16 144/74 H 96 10/02/22 19:36 79 16 142/78 H 95 10/02/22 18:47 69 16 128/73 95 10/02/22 18:48 10/02/22 18:30 71 20 125/74 100 10/02/22 16:18 73 18 134/70 95 10/02/22 14:19 98.1 F 94 H 18 174/89 H 96 Pulse Ox O2 Del Method O2 Del Method 10/03/22 12:40 Room Air 10/03/22 10:12 Room Air 10/03/22 10:11 Room Air 10/03/22 07:53 Room Air 10/03/22 06:00 Room Air 10/03/22 05:04 Room Air 10/03/22 04:00 Room Air 10/03/22 03:00 Room Air 10/03/22 02:01 Room Air 10/03/22 01:00 Room Air 10/02/22 22:10 Room Air 10/02/22 18:47 95 Room Air 10/02/22 20:31 Room Air 10/02/22 20:00 Room Air 10/02/22 19:54 Room Air 10/02/22 19:36 Room Air 10/02/22 18:47 Room Air 10/02/22 18:48 Room Air 10/02/22 18:30 Room Air 10/02/22 16:18 Room Air 10/02/22 14:19 Room Air Recovery Score Activity: Moves 4 extremities Respiration: Deep Breath/Cough Circulation: +/-20% PreAnes Value Consciousness: Fully Awake Oxygen Saturation: > 92% On Room Air Post Anesthesia Score: 10 Discharge Sedation Level of Care: Fast Track Phase II Post Sedation Plan On clinical assessment, the patient appears to have tolerated the sedation without complications. Patient is recovering as anticipated. Patient will continue to be monitored by nursing and may be discharged when sedation discharge criteria are met per below protocol. Upon Completions of procedure up to 15 minutes continue every 5 minute vital signs and the P.A.R. score; then discharge to a Phase I or Fast Track to Phase II per the following guidelines: * Discharge Patient to appropriate Phase II area if PAR is 8 or greater or return to pre- procedure baseline. The post - procedure orders will be as directed. * If PAR score is less than 8 or not return to pre-procedure baseline then patient will follow Phase I monitoring till PAR is reached for Phase II. The Phase I may be done in procedure room or may call to secure a Phase I area. * If naloxone or flumazenil are used for reversal, hold in Phase I for continued monitoring from when last reversal dose was given for a minimum of 60 minutes or longer pending the nurse and/or physician discretion of patient condition before discharge to Phase II. Please call the Sedation Physician to re-evaluate and complete post-note for discharge to Phase II area. Do NOT discharge from procedure sedation or Phase 1 until post- sedation evaluation note is complete by procedure /sedation MD Sedation Discharge Instructions to be given to the patient at discharge to home.
--- NOTE | 2022-10-03 12:57 | Cardiac Catheterization ---
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 Cardiac Status Clinical evaluation leading to the procedure CAD Presenation: Non STEMI Anginal Classification: CCS IV Diagnostic Physicians Name: Chris Smith MD Closure Device Recommendations: PCI without planned CABG Cardiac Cath Procedure Full Procedure Date October 03, 2022 Pre-Procedure Diagnosis Pre-Procedure Diagnosis: Acute Coronary Syndrome AUC Score AUC Score: 8 Post-Procedure Diagnosis Post-Procedure Diagnosis: Severe CAD and Successful PCI Procedure(s) Performed Procedure(s) Performed: Coronary Angiography, Drug Eluting Stent and Fractional Flow [employer] Developer Chris Smith MD [place] Operator(s) Graciela Estrada Estimated Blood Loss Estimated Blood Loss: < 25 ml Medication(s) Medication(s): Clopidogrel, Fentanyl, Heparin, Lidocaine 1%, Nicardipine, Nitroglycerin and Versed Summary of Findings Indication: High risk NSTEMI Access: 6 Fr right radial artery Catheters: EBU 3.5 guide, JR4 guide -- PCI of LAD-- Antithrombotic therapy: Heparin, clopidogrel Procedure: Left main cannulated with EBU 3.5 guide Pre-procedure flow JANINA 2-3 Field Services Director 50 wire passed across lesion into distal vessel Apical LAD lesion predilated with 2.0 compliant balloon Mid LAD lesion predilated with 2.0 balloon. Dilated lesion stented with 3.0 x 12 mm Thong Stent post-dilated with 3.5 noncompliant balloon IC vasodilators administered for spasm Post procedure JANINA 3 flow, stent well expanded with minimal residual stenosis. Apical LAD with JANINA 3 flow but severe residual stenosis. FFR of proximal circumflex Wire removed from LAD and redirected into distal circumflex ACIST Catheter placed across stenosis Pd/Pa 0.99 FFR 0.92 Coronary angiography revealed no apparent complications post wire/catheter removal PCI of right PDA RCA cannulated with JR4 guide Pre-procedure flow JANINA 3 Field Services Director 50 wire passed across lesion into distal RPDA RPDA lesion predilated with 2.0 compliant balloon RPDA lesion predilated with 2.25x12 mm Gervais stent. Stent post-dilated with stent balloon. IC vasodilators administered for spasm Post procedure JANINA 3 flow, stent well expanded with minimal residual stenosis. No apparent complications. Arterial Closure: TR Band Summary: 1. Successful PCI of mid LAD with single drug-eluting stent (3.0 x 12 mm Gervais; postdilated with 3.5 NC). -Small apical LAD stenosis dilated with 2.0 balloon. Residual severe stenosis but JANINA-3 flow. 2. Successful PCI of mid right PDA with single drug-eluting stent (2.25 x 12 mm Thong). 3. Moderate nonobstructive proximal circumflex disease (FFR 0.92) Recommendations: To PCU for continued monitoring Loaded with clopidogrel 600 mg in Back Up Worker Continue dual-antiplatelet therapy for at least 1 year Continue statin, and ASCVD risk factor modification Consult cardiac Rehab Hemodynamics Rest Ao:: 113/60/84 Final Ao: 105/60/81 LV: -- Recommendations Recommendations: PCI without planned CABG Specimens Specimens: None Radiation Exposure (mGy) 5129 Contrast (mls) 140 Anesthesia Moderate 0130-3006 Procedural Complication(s) None Disposition PCU I attest to the content of the Intraoperative Record and any orders documented therein. Any exceptions are noted below. [facility] Card Cath Procedure Codes Cardiac Catheterization Procedure 1: Cardiovascular Cath Procedures: 72434 (Doppler) Pressure Wire Moderate Sedation Procedure 1: Sedation/Anesthesia: 81183 Mod Sedation by the same physician; Ea [id number] Minutes Stenting Procedure 1: Cardiovascular Stent Procedures: 01667 Perc transcatheter placement of intracoronary stent(s), with ang Procedure 2: Cardiovascular Stent Procedures: 91600 Ea addl branch of a major coronary artery PG Care Time/CCT Total # of Minutes Spent Total Time Spent with Patient: Total time spent is greater than 50% in coordination of care (as documented) at patient's floor/unit and/or counseling patient:
[2022-10-03] MEDS ORDERED: SODIUM CHLORIDE 0.9% 1000ML 1,000 ML IV SCH (13:45)
--- NOTE | 2022-10-03 13:53 | Hospitalist Progress Note ---
Date of Service October 03, 2022 Assessment & Plan (1) Acute coronary syndrome: Plan: Patient presented w/ L chest pain w/ radiation to arm/back , worse w/ activity, improved w/ rest/ASA 81mg x 2, nitro and nitropaste with elevated troponin 62--> 160.2--> 127.4 concerning for ACS , CXR w/ cardiomegaly. I messaged Dr Gonzalez this morning regarding more urgent need for cardiac cath (patient denied CP at that time,but had nitropaste on) and patient continued NPO for possible cath Patient underwent cardiac catheterization with Dr Smith which showed SEVERE CAD 1. Successful PCI of mid LAD with single drug-eluting stent (3.0 x 12 mm Thong; postdilated with 3.5 NC). -Small apical LAD stenosis dilated with 2.0 balloon. Residual severe stenosis but JANINA-3 flow. 2. Successful PCI of mid right PDA with single drug-eluting stent (2.25 x 12 mm Thong). 3. 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 CP free except mild discomfort but not like prior pain. No further pain between shoulder blades/L arm Continue to monitor on PCU -- in ICU 102 as telemetry overflow (2) CAD (coronary artery disease), [place] band coronary artery: Plan: Severe CAD , s/p cath -- see report Continues on ASA/Plavix (need x 1 year), Continue newly added metoprolol, Continue statin (currently on pravastatin, but dose/agent TBD as below), nitro prn EKG w/ CP Will need cardiac rehab Monitor on telemetry (3) Left-sided chest pain: Plan: as above, improved s/p cath (4) Hypertension: Plan: BP elevated, metoprolol added on admit, improved Cr 1.22 on AM labs from 1.47, remains on lisinopril 40mg daily BP currently 117/86 Monitor (5) Hypercholesteremia: Plan: Continued pravastatin 40mg for now, however will need changed to high intensity statin based on lipid panel/CAD with TRG 719 (may need specific therapy), cholesterol 221 Direct LDL added to labs for further deliniation (6) Migraine: Plan: Continue amitriptyline. (7) Elevated triglycerides with high cholesterol: Plan: as above, may need specific therapy for TRG. Lipase wnl on check Plan continued inpatient stay s/p cath -- changed to PCU admission status from med/tele given above prior to cath changed to FULL admit given Obs status on admit DAPT x 1 year, statin, risk strat, cardiac rehab. Direct LDL pending Will need cards f/u Admission and Anticipated Discharge Date Admission Date: October 02, 2022 Supervising Physician Co-Signing Physician Notes Attending Attestation - Chart reviewed, care plan d/w ROMANA Cornejo. I agree with the larios components of her documentation with following addition -- CAD with unstable angina Reagan Curry MD Subjective Patient evaluated this afternoon after catheterization. Doing well, some discomfort to chest from poking around but prior pain is relieved. He states he is hungry, tolerating clears and can advance diet. Lipid panel w/ elevated TRG/cholesterol, on pravastatin. Discussed likely change and checking LDL direct and will have further recs. He is aware to continue DAPT x 1 year. Will be monitored overnight/labs repeated, but if remains CP free tomorrow and monitoring overnight without any issues could possible d/c tomorrow. Review of Systems Review of Systems: All systems reviewed & are unremarkable except as noted in HPI & below Physical Exam Physical Exam: General: WD/WN obese male, sitting up in bed post-cath, NAD HEENT: head normocephalic, atraumatic, mmm, trachea midline without deviation, no JVD Resp: CTAB, no w/c/r, on room air CV: RRR, no m/r/g, no pitting edema/calf tenderness, access site covered , c/d/i GI:+BS, obese, nontender MSK/Neuro: moves all extremities, no focal deficits Psych: AOx3, pleasant and cooperative thankful for cardiac catheterization/care and concern Results & Data Results & Data ([facility]) Vital Signs (Past 12 Hours) Vital Signs Temp Pulse Pulse Resp BP BP Pulse Ox 10/03/22 13:15 63 10/03/22 13:10 88 12 117/86 96 10/03/22 13:10 36.8 C 10/03/22 12:55 70 16 140/79 98 10/03/22 12:40 68 16 130/70 98 10/03/22 10:12 66 20 154/76 H 97 10/03/22 10:11 78 18 143/82 H 95 10/03/22 07:53 81 18 131/78 98 10/03/22 06:00 66 23 123/74 92 10/03/22 05:04 66 18 141/85 H 93 10/03/22 04:00 63 21 111/66 93 10/03/22 03:00 62 18 121/72 94 10/03/22 02:01 62 16 103/80 92 O2 Del Method 10/03/22 13:15 10/03/22 13:10 Room Air 10/03/22 13:10 10/03/22 12:55 Room Air 10/03/22 12:40 Room Air 10/03/22 10:12 Room Air 10/03/22 10:11 Room Air 10/03/22 07:53 Room Air 10/03/22 06:00 Room Air 10/03/22 05:04 Room Air 10/03/22 04:00 Room Air 10/03/22 03:00 Room Air 10/03/22 02:01 Room Air Laboratory Results 10/03/22 10/03/22 10/03/22 Range/Units 13:58 11:46 05:42 WBC (4.8-10.8) K/ul RBC (4.63-6.08) M/uL Hgb (14.0-18.0) g/dl Hct (40.1-51.0) % MCV (80.0-100.0) fL MCH (25.0-34.0) pg MCHC (32.0-36.0) g/dL RDW Std Deviation (36.4-46.3) fL RDW Coeff of Suzy (11.5-14.5) % Plt Count (130-400) K/uL MPV (9.4-12.4) fL Immature Gran % (Auto) % Neut % (Auto) % Lymph % (Auto) % Josephine % (Auto) % Eos % (Auto) % Baso % (Auto) % Neut # (Auto) (1.4-6.5) K/uL Lymph # (Auto) (1.2-3.4) K/uL Josephine # (Auto) (0.24-0.82) K/uL Eos # (Auto) (0-0.50) K/uL Baso # (Auto) (0-0.2) K/uL Immature Gran # (Auto) (0.00-0.02) K/uL PT (9.0-12.0) Seconds INR (0.9-1.1) APTT (21.0-31.0) Seconds PTT Ratio Activ Coag Time Kaolin 275 H (94-140) SECONDS Sodium (136-145) mmol/L Potassium (3.5-5.1) mmol/L Chloride (98-107) mmol/L Carbon Dioxide (21-32) mmol/L Anion Gap (3-11) BUN (6-23) mg/dl Creatinine (0.6-1.4) mg/dl Est Cr Clr Drug Dosing ml/min Est GFR ( Amer) ml/min Est GFR (Non-Af Amer) ml/min BUN/Creatinine Ratio (10-20) Glucose (70-99(Fasting)) mg/dl Estimat Average Glucose mg/dl Hemoglobin A1c (4.5-5.6) % Calcium (8.5-10.1) mg/dl Magnesium (1.7-2.4) mg/dl Total Bilirubin (0.2-1.0) mg/dl AST (13-39) U/L ALT (7-52) U/L Alkaline Phosphatase (34-104) U/L Troponin I High Sens Pending (0-20) pg/ml Total Protein (6.0-8.3) gm/dl Albumin (3.4-5.0) gm/dl Globulin (2.5-4.0) gm/dl Albumin/Globulin Ratio (0.9-2) Triglycerides (0-150) mg/dl Cholesterol (0-200) mg/dl LDL Cholesterol Direct 63 mg/dl LDL Cholesterol, Calc VLDL Cholesterol, Calc HDL Cholesterol mg/dl Cholesterol/HDL Ratio (0-5) Lipase (11-82) U/L SARS-CoV-2, RNA, NAAT (NEGATIVE) 10/03/22 10/03/22 10/03/22 Range/Units 05:42 05:42 05:42 WBC 10.23 (4.8-10.8) K/ul RBC 3.83 L (4.63-6.08) M/uL Hgb 12.3 L (14.0-18.0) g/dl Hct 36.3 L (40.1-51.0) % MCV 94.8 (80.0-100.0) fL MCH 32.1 (25.0-34.0) pg MCHC 33.9 (32.0-36.0) g/dL RDW Std Deviation 43.0 (36.4-46.3) fL RDW Coeff of Suzy 12.4 (11.5-14.5) % Plt Count 189 (130-400) K/uL MPV 9.9 (9.4-12.4) fL Immature Gran % (Auto) 0.3 % Neut % (Auto) 68.5 % Lymph % (Auto) 21.1 % Josephine % (Auto) 8.1 % Eos % (Auto) 1.2 % Baso % (Auto) 0.8 % Neut # (Auto) 7.01 H (1.4-6.5) K/uL Lymph # (Auto) 2.16 (1.2-3.4) K/uL Josephine # (Auto) 0.83 H (0.24-0.82) K/uL Eos # (Auto) 0.12 (0-0.50) K/uL Baso # (Auto) 0.08 (0-0.2) K/uL Immature Gran # (Auto) 0.03 H (0.00-0.02) K/uL PT (9.0-12.0) Seconds INR (0.9-1.1) APTT (21.0-31.0) Seconds PTT Ratio Activ Coag Time Kaolin (94-140) SECONDS Sodium 136 (136-145) mmol/L Potassium 4.5 (3.5-5.1) mmol/L Chloride 105 (98-107) mmol/L Carbon Dioxide 26 (21-32) mmol/L Anion Gap 5 (3-11) BUN 21 (6-23) mg/dl Creatinine 1.22 (0.6-1.4) mg/dl Est Cr Clr Drug Dosing 78.0 ml/min Est GFR ( Amer) 69.2 ml/min Est GFR (Non-Af Amer) 59.7 ml/min BUN/Creatinine Ratio 17.2 (10-20) Glucose 100 H (70-99(Fasting)) mg/dl Estimat Average Glucose mg/dl Hemoglobin A1c (4.5-5.6) % Calcium 8.8 (8.5-10.1) mg/dl Magnesium 1.9 (1.7-2.4) mg/dl Total Bilirubin (0.2-1.0) mg/dl AST (13-39) U/L ALT (7-52) U/L Alkaline Phosphatase (34-104) U/L Troponin I High Sens 127.4 H* D (0-20) pg/ml Total Protein (6.0-8.3) gm/dl Albumin (3.4-5.0) gm/dl Globulin (2.5-4.0) gm/dl Albumin/Globulin Ratio (0.9-2) Triglycerides 719 H (0-150) mg/dl Cholesterol 221 H (0-200) mg/dl LDL Cholesterol Direct mg/dl LDL Cholesterol, Calc TNP VLDL Cholesterol, Calc TNP HDL Cholesterol 26 mg/dl Cholesterol/HDL Ratio 8.5 H (0-5) Lipase 34 (11-82) U/L SARS-CoV-2, RNA, NAAT (NEGATIVE) 10/03/22 10/02/22 10/02/22 Range/Units 05:42 23:11 16:47 WBC (4.8-10.8) K/ul RBC (4.63-6.08) M/uL Hgb (14.0-18.0) g/dl Hct (40.1-51.0) % MCV (80.0-100.0) fL MCH (25.0-34.0) pg MCHC (32.0-36.0) g/dL RDW Std Deviation (36.4-46.3) fL RDW Coeff of Suzy (11.5-14.5) % Plt Count (130-400) K/uL MPV (9.4-12.4) fL Immature Gran % (Auto) % Neut % (Auto) % Lymph % (Auto) % Josephine % (Auto) % Eos % (Auto) % Baso % (Auto) % Neut # (Auto) (1.4-6.5) K/uL Lymph # (Auto) (1.2-3.4) K/uL Josephine # (Auto) (0.24-0.82) K/uL Eos # (Auto) (0-0.50) K/uL Baso # (Auto) (0-0.2) K/uL Immature Gran # (Auto) (0.00-0.02) K/uL PT (9.0-12.0) Seconds INR (0.9-1.1) APTT (21.0-31.0) Seconds PTT Ratio Activ Coag Time Kaolin (94-140) SECONDS Sodium (136-145) mmol/L Potassium (3.5-5.1) mmol/L Chloride (98-107) mmol/L Carbon Dioxide (21-32) mmol/L Anion Gap (3-11) BUN (6-23) mg/dl Creatinine (0.6-1.4) mg/dl Est Cr Clr Drug Dosing ml/min Est GFR ( Amer) ml/min Est GFR (Non-Af Amer) ml/min BUN/Creatinine Ratio (10-20) Glucose (70-99(Fasting)) mg/dl Estimat Average Glucose 114 mg/dl Hemoglobin A1c 5.6 (4.5-5.6) % Calcium (8.5-10.1) mg/dl Magnesium (1.7-2.4) mg/dl Total Bilirubin (0.2-1.0) mg/dl AST (13-39) U/L ALT (7-52) U/L Alkaline Phosphatase (34-104) U/L Troponin I High Sens 160.2 H* D 62.0 H* D (0-20) pg/ml Total Protein (6.0-8.3) gm/dl Albumin (3.4-5.0) gm/dl Globulin (2.5-4.0) gm/dl Albumin/Globulin Ratio (0.9-2) Triglycerides (0-150) mg/dl Cholesterol (0-200) mg/dl LDL Cholesterol Direct mg/dl LDL Cholesterol, Calc VLDL Cholesterol, Calc HDL Cholesterol mg/dl Cholesterol/HDL Ratio (0-5) Lipase (11-82) U/L SARS-CoV-2, RNA, NAAT (NEGATIVE) 10/02/22 10/02/22 10/02/22 Range/Units 16:00 14:36 14:36 WBC (4.8-10.8) K/ul RBC (4.63-6.08) M/uL Hgb (14.0-18.0) g/dl Hct (40.1-51.0) % MCV (80.0-100.0) fL MCH (25.0-34.0) pg MCHC (32.0-36.0) g/dL RDW Std Deviation (36.4-46.3) fL RDW Coeff of Suzy (11.5-14.5) % Plt Count (130-400) K/uL MPV (9.4-12.4) fL Immature Gran % (Auto) % Neut % (Auto) % Lymph % (Auto) % Josephine % (Auto) % Eos % (Auto) % Baso % (Auto) % Neut # (Auto) (1.4-6.5) K/uL Lymph # (Auto) (1.2-3.4) K/uL Josephine # (Auto) (0.24-0.82) K/uL Eos # (Auto) (0-0.50) K/uL Baso # (Auto) (0-0.2) K/uL Immature Gran # (Auto) (0.00-0.02) K/uL PT (9.0-12.0) Seconds INR (0.9-1.1) APTT (21.0-31.0) Seconds PTT Ratio Activ Coag Time Kaolin (94-140) SECONDS Sodium 137 (136-145) mmol/L Potassium 3.8 (3.5-5.1) mmol/L Chloride 105 (98-107) mmol/L Carbon Dioxide 23 (21-32) mmol/L Anion Gap 9 (3-11) BUN 26 H (6-23) mg/dl Creatinine 1.47 H (0.6-1.4) mg/dl Est Cr Clr Drug Dosing 64.8 ml/min Est GFR ( Amer) 55.2 ml/min Est GFR (Non-Af Amer) 47.7 ml/min BUN/Creatinine Ratio 17.7 (10-20) Glucose 131 H (70-99(Fasting)) mg/dl Estimat Average Glucose mg/dl Hemoglobin A1c (4.5-5.6) % Calcium 9.1 (8.5-10.1) mg/dl Magnesium 1.8 (1.7-2.4) mg/dl Total Bilirubin 0.4 (0.2-1.0) mg/dl AST 21 (13-39) U/L ALT 29 (7-52) U/L Alkaline Phosphatase 81 (34-104) U/L Troponin I High Sens 43.5 H (0-20) pg/ml Total Protein 7.4 (6.0-8.3) gm/dl Albumin 4.4 (3.4-5.0) gm/dl Globulin 3.0 (2.5-4.0) gm/dl Albumin/Globulin Ratio 1.5 (0.9-2) Triglycerides (0-150) mg/dl Cholesterol (0-200) mg/dl LDL Cholesterol Direct mg/dl LDL Cholesterol, Calc VLDL Cholesterol, Calc HDL Cholesterol mg/dl Cholesterol/HDL Ratio (0-5) Lipase (11-82) U/L SARS-CoV-2, RNA, NAAT NEGATIVE (NEGATIVE) 10/02/22 10/02/22 Range/Units 14:36 14:36 WBC 7.06 (4.8-10.8) K/ul RBC 4.37 L (4.63-6.08) M/uL Hgb 14.0 (14.0-18.0) g/dl Hct 40.2 (40.1-51.0) % MCV 92.0 (80.0-100.0) fL MCH 32.0 (25.0-34.0) pg MCHC 34.8 (32.0-36.0) g/dL RDW Std Deviation 40.8 (36.4-46.3) fL RDW Coeff of Suzy 12.1 (11.5-14.5) % Plt Count 212 (130-400) K/uL MPV 9.9 (9.4-12.4) fL Immature Gran % (Auto) 0.3 % Neut % (Auto) 63.2 % Lymph % (Auto) 28.6 % Josephine % (Auto) 6.5 % Eos % (Auto) 0.4 % Baso % (Auto) 1.0 % Neut # (Auto) 4.46 (1.4-6.5) K/uL Lymph # (Auto) 2.02 (1.2-3.4) K/uL Josephine # (Auto) 0.46 (0.24-0.82) K/uL Eos # (Auto) 0.03 (0-0.50) K/uL Baso # (Auto) 0.07 (0-0.2) K/uL Immature Gran # (Auto) 0.02 (0.00-0.02) K/uL PT 10.3 (9.0-12.0) Seconds INR 1.0 (0.9-1.1) APTT 28.5 (21.0-31.0) Seconds PTT Ratio 1.0 Activ Coag Time Kaolin (94-140) SECONDS Sodium (136-145) mmol/L Potassium (3.5-5.1) mmol/L Chloride (98-107) mmol/L Carbon Dioxide (21-32) mmol/L Anion Gap (3-11) BUN (6-23) mg/dl Creatinine (0.6-1.4) mg/dl Est Cr Clr Drug Dosing ml/min Est GFR ( Amer) ml/min Est GFR (Non-Af Amer) ml/min BUN/Creatinine Ratio (10-20) Glucose (70-99(Fasting)) mg/dl Estimat Average Glucose mg/dl Hemoglobin A1c (4.5-5.6) % Calcium (8.5-10.1) mg/dl Magnesium (1.7-2.4) mg/dl Total Bilirubin (0.2-1.0) mg/dl AST (13-39) U/L ALT (7-52) U/L Alkaline Phosphatase (34-104) U/L Troponin I High Sens (0-20) pg/ml Total Protein (6.0-8.3) gm/dl Albumin (3.4-5.0) gm/dl Globulin (2.5-4.0) gm/dl Albumin/Globulin Ratio (0.9-2) Triglycerides (0-150) mg/dl Cholesterol (0-200) mg/dl LDL Cholesterol Direct mg/dl LDL Cholesterol, Calc VLDL Cholesterol, Calc HDL Cholesterol mg/dl Cholesterol/HDL Ratio (0-5) Lipase (11-82) U/L SARS-CoV-2, RNA, NAAT (NEGATIVE) Diagnostic Findings Chest X-Ray 10/02/22 14:33 SINGLE VIEW CHEST CLINICAL HISTORY: Atypical chest pain. FINDINGS: 2 AP, portable, upright chest radiographs are compared to study dated 10/09/2011 and correlated with chest CT dated 06/06/2016. The examination is degraded by portable technique and apical lordotic positioning. The heart is mildly enlarged. The pulmonary vasculature is noncongested. Chronic interstitial thickening is similar to previous. There is bibasilar scarring/atelectasis. The lungs and pleural spaces are otherwise clear. No pneumothorax is seen. The skeletal structures are osteopenic. There are healed left-sided rib fractures. IMPRESSION: Mild cardiomegaly with no acute cardiopulmonary abnormality identified. ACT 112: Negative or not required by law. Electronically signed by: Loi Vann M.D. 10/02/2022 3:12 PM PG Care Time/CCT Total # of Minutes Spent Total Time Spent with Patient: Total time spent is greater than 50% in coordination of care (as documented) at patient's floor/unit and/or counseling patient: Coding Level of Care Code 75647 Subseq Hosp Care Lvl 3 Diagnoses Acute coronary syndrome I24.9 CAD (coronary artery disease), [place] band coronary artery I25.10 Left-sided chest pain R07.9 Hypertension I10 Hypercholesteremia E78.00 Migraine G43.909 Elevated triglycerides with high cholesterol E78.2
[2022-10-03] MEDS: ASPIRIN 81 MG ECTAB PO SCH (14:10)
[2022-10-03] MEDS: PRAVASTATIN SOD 40 MG TAB PO SCH (20:39)
[2022-10-03] MEDS: AMITRIPTYLINE HCL 100 MG TAB PO SCH (20:40)
--- NOTE | 2022-10-03 22:57 | Electrocardiogram Report ---
Test Reason : Blood Pressure : / mmHG Vent. Rate : 094 BPM Atrial Rate : 094 BPM P-R Int : 152 ms QRS Dur : 106 ms QT Int : 340 ms P-R-T Axes : 061 047 035 degrees QTc Int : 425 ms Sinus rhythm with occasional Premature ventricular complexes Nonspecific ST abnormality When compared with ECG of 02-NOV-2015 10:32, Premature ventricular complexes are now Present Confirmed by Reagan Modi ([id number]) on 10/03/2022 10:57:39 PM Referred By: REFERRED SELF Confirmed By:Reagan Modi
[2022-10-04] MEDS: NITROGLYCERIN 2% OINTMENT 30GM TUBE EXT SCH ×2 (00:12→06:21)
[2022-10-04] MEDS: ACETAMINOPHEN 325 MG TAB PO PRN (00:14)
[2022-10-04 06:27] LABS: Basophils # (auto) 0.06 K/uL (0-0.2); Basophils % (auto) 0.7 %; Eosinophils # (auto) 0.11 K/uL (0-0.50); Eosinophils % (auto) 1.2 %; Hematocrit (blood only) 36.8 % (40.1-51.0); Hemoglobin 12.9 g/dl (14.0-18.0); Immature Granulocytes # (auto) 0.02 K/uL (0.00-0.02); Immature Granulocytes % (auto) 0.2 %; Lymphocytes % (auto) 19.1 %; Mean Corpuscular Hemoglobin 32.1 pg (25.0-34.0); Mean Corpuscular Hgb Conc 35.1 g/dL (32.0-36.0); Mean Corpuscular Volume 91.5 fL (80.0-100.0); Monocytes # (auto) 0.82 K/uL (0.24-0.82); Monocytes % (auto) 9.2 %; Neutrophils # (auto) 6.18 K/uL (1.4-6.5); Neutrophils % (auto) 69.6 %; Platelet Count 201 K/uL (130-400); RDW Coefficient of Variation 12.4 % (11.5-14.5); RDW Standard Deviation 41.2 fL (36.4-46.3); Red Blood Count 4.02 M/uL (4.63-6.08); White Blood Count 8.89 K/ul (4.8-10.8)
[2022-10-04 06:47] LABS: Albumin Globulin Ratio 1.5 (0.9-2); Albumin Level 4.1 gm/dl (3.4-5.0); BUN Creatinine Ratio 16.2 (10-20); Bilirubin,Total 0.5 mg/dl (0.2-1.0); Calcium 8.7 mg/dl (8.5-10.1); Creatinine Clr Calc Pharmacy 81.4 ml/min; Est GFR (African American) 72.8 ml/min; Est GFR (Non-African American) 62.8 ml/min; Globulin 2.7 gm/dl (2.5-4.0); Magnesium 1.9 mg/dl (1.7-2.4); Total Protein 6.8 gm/dl (6.0-8.3)
[2022-10-04] MEDS: ASPIRIN 81 MG ECTAB PO SCH (08:00)
[2022-10-04] MEDS: PSYLLIUM or GUAR GUM FIBER POWDER PACKET PO SCH (08:00)
[2022-10-04] MEDS: lisinopril 40 MG TAB PO SCH (08:02)
[2022-10-04] MEDS: METOPROLOL TARTRATE 25 MG TAB PO SCH (08:02)
[2022-10-04] MEDS: FLUTICASONE PROPIONATE NA SPR 16 GM BTL SCH (08:02)
[2022-10-04] MEDS: MULTIVITAMIN TAB PO SCH (08:03)
[2022-10-04] MEDS ORDERED: ISOSORBIDE MONO EXTENDED REL 30 MG TABCR PO SCH (09:00)
[2022-10-04] MEDS ORDERED: CLOPIDOGREL BISULFATE 75 MG TAB PO SCH (09:00)
--- NOTE | 2022-10-04 13:44 | Cardiology Progress Note ---
Date of Service October 04, 2022 Assessment & Plan (1) Acute coronary syndrome: (2) CAD (coronary artery disease), [place] coronary artery: (3) S/P coronary artery stent placement: (4) Hypertension: (5) Hypercholesteremia: Plan ASSESSMENT/PLAN: 1. Acute coronary syndrome: No further angina following LAD and PDA PCI. Medical therapy as outlined below. 2. CAD s/p LAD and PDA PCI and apical LAD POBA: Has residual severe apical LAD stenosis. No angina. Feels much better following PCI. Continue aspirin 81 mg daily indefinitely. Continue Plavix 75 mg daily for at least 1 year. Antiplatelet therapy discussed with patient in detail. Continue ELKE inhibitor and beta-derek. High intensity statin therapy. PRN nitroglycerin on discharge. Recommend cardiac rehab and he is agreeable. 3. Hypertension: Blood pressure well controlled. Continue beta-derek. Continue ELKE inhibitor. 4. Dyslipidemia: High intensity statin therapy initiated during this hospital stay. Triglycerides significantly elevated. If triglycerides remain elevated with more aggressive statin therapy, specific therapy for hypertriglyceridemia may be warranted. Mediterranean diet. 5. Disposition: Plan of care discussed with Dr. Dupree of the primary hospitalist service. Okay for discharge from a cardiology perspective. Follow- up in the cardiology office in 1 to 2 weeks. Cardiac rehab. Admission and Anticipated Discharge Date Admission Date: October 03, 2022 Subjective He feels much better today following PCI. No further angina. He denies shortn ess of breath, syncope, near syncope, palpitations, edema, or bleeding. He has ambulated in the hallway and would like to go home. He was alone in his hospital room. Physical Exam Physical Exam: Gen.: No acute distress. Alert and oriented. HEENT: Anicteric sclera. Neck: No JVD. Cardiac: Regular. Normal S1-S2. No murmurs, rubs, or gallops. Pulmonary: Clear to auscultation bilaterally without wheezes, rales, or rhonchi. Abdomen: Soft, nontender, nondistended, with normoactive bowel sounds. No bruits noted. Extremities: 2+ radial pulses bilaterally. Right radial cath site was clean, dry, and intact without hematoma or drainage. 2+ posterior tibialis pulses bilaterally. No edema or cyanosis. Psychiatric: Affect appears appropriate. Results & Data ([facility]) Vital Signs (Past 12 Hours) Vital Signs Temp Pulse Pulse Resp BP BP Pulse Ox 10/04/22 12:00 36.9 C 74 20 110/63 96 10/04/22 08:00 64 10/04/22 07:00 37.2 C 72 20 137/74 95 10/04/22 06:30 64 20 10/04/22 06:00 68 21 10/04/22 05:30 70 18 10/04/22 05:00 65 15 10/04/22 04:30 64 19 10/04/22 04:03 122/68 10/04/22 04:03 71 15 95 10/04/22 04:00 64 20 10/04/22 03:30 66 9 L 10/04/22 03:00 61 17 10/04/22 02:30 62 19 10/04/22 02:00 65 19 10/04/22 04:01 37.0 C 72 18 122/68 94 O2 Del Method 10/04/22 12:00 Room Air 10/04/22 08:00 10/04/22 07:00 Room Air 10/04/22 06:30 10/04/22 06:00 10/04/22 05:30 10/04/22 05:00 10/04/22 04:30 10/04/22 04:03 10/04/22 04:03 10/04/22 04:00 10/04/22 03:30 10/04/22 03:00 10/04/22 02:30 10/04/22 02:00 10/04/22 04:01 Room Air Laboratory Results Laboratory Results - last 24 hr 10/03/22 10/04/22 10/04/22 13:58 05:19 05:19 WBC 8.89 RBC 4.02 L Hgb 12.9 L Hct 36.8 L MCV 91.5 MCH 32.1 MCHC 35.1 RDW Std Deviation 41.2 RDW Coeff of Suzy 12.4 Plt Count 201 MPV 10.0 Immature Gran % (Auto) 0.2 Neut % (Auto) 69.6 Lymph % (Auto) 19.1 [place] % (Auto) 9.2 Eos % (Auto) 1.2 Baso % (Auto) 0.7 Neut # (Auto) 6.18 Lymph # (Auto) 1.70 [place] # (Auto) 0.82 Eos # (Auto) 0.11 Baso # (Auto) 0.06 Immature Gran # (Auto) 0.02 Sodium 136 Potassium 4.0 Chloride 104 Carbon Dioxide 25 Anion Gap 7 BUN 19 Creatinine 1.17 Est Cr Clr Drug Dosing 81.4 Est GFR ( Amer) 72.8 Est GFR (Non-Af Amer) 62.8 BUN/Creatinine Ratio 16.2 Glucose 102 H POC Glucose Calcium 8.7 Magnesium 1.9 Total Bilirubin 0.5 AST 20 ALT 23 Alkaline Phosphatase 80 Troponin I High Sens 105.4 H* Total Protein 6.8 Albumin 4.1 Globulin 2.7 Albumin/Globulin Ratio 1.5 10/04/22 10:58 WBC RBC Hgb Hct MCV MCH MCHC RDW Std Deviation RDW Coeff of Suzy Plt Count MPV Immature Gran % (Auto) Neut % (Auto) Lymph % (Auto) [place] % (Auto) Eos % (Auto) Baso % (Auto) Neut # (Auto) Lymph # (Auto) [place] # (Auto) Eos # (Auto) Baso # (Auto) Immature Gran # (Auto) Sodium Potassium Chloride Carbon Dioxide Anion Gap BUN Creatinine Est Cr Clr Drug Dosing Est GFR ( Amer) Est GFR (Non-Af Amer) BUN/Creatinine Ratio Glucose POC Glucose 110 H Calcium Magnesium Total Bilirubin AST ALT Alkaline Phosphatase Troponin I High Sens Total Protein Albumin Globulin Albumin/Globulin Ratio Diagnostic Findings Telemetry personally reviewed: Sinus rhythm. No arrhythmia. Cardiac Cath 10/04/22: Coronary angiography: 1. Left main: Proximal left main 10-20%. 2. Left anterior descending: Early mid LAD 40%. Mid LAD 70%. Early distal LAD 50-70%. Severe diffuse CAD involving the distal LAD with 98% stenosis focally. Apical LAD 100% with [id number] collaterals. JANINA 2 flow within the distal LAD. Small diagonal vessel without significant CAD. 3. Circumflex: Ostial/proximal circumflex is hazy in appearance, with 50-70% CAD. Proximal circumflex large caliber. Mid to distal AV groove circumflex is very small caliber. Large OM branching vessel without significant CAD. 4. Right coronary artery: RCA is large and dominant. Proximal RCA 20-30%. Early mid RCA 30-40%. Diffuse luminal irregularities throughout. Mid PDA 80%. PL without significant CAD. Left heart catheterization: 1. Left ventriculography was not performed. 2. No aortic stenosis. 3. LVEDP 15 mmHg. Interventional Summary: 1. Successful PCI of mid LAD with single drug-eluting stent (3.0 x 12 mm [place]; postdilated with 3.5 NC). -Small apical LAD stenosis dilated with 2.0 balloon. Residual severe stenosis but JANINA-3 flow. 2. Successful PCI of mid right PDA with single drug-eluting stent (2.25 x 12 mm [place]). 3. Moderate nonobstructive proximal circumflex disease (FFR 0.92) Medications Administered Current Inpatient Medications Acetaminophen (Acetaminophen 325 Mg Tab) 650 mg PO Q4H PRN PRN Reason: Pain or Fever Stop: 11/01/22 18:46 Last Admin: 10/04/22 00:14 Dose: 650 mg Amitriptyline HCl (Amitriptyline Hcl 100 Mg Tab) 100 mg PO HS [facility] Stop: 11/01/22 20:59 Last Admin: 10/03/22 20:40 Dose: 100 mg Aspirin (Aspirin 81 Mg Ectab) 81 mg PO QAM [facility] Stop: 11/02/22 13:18 Last Admin: 10/04/22 08:00 Dose: 81 mg Clopidogrel Bisulfate (Clopidogrel Bisulfate 75 Mg Tab) 75 mg PO QAM [facility] Stop: 11/03/22 08:59 Last Admin: 10/04/22 08:02 Dose: 75 mg Fluticasone Propionate (Fluticasone Propionate Na Spr 16 Gm Btl) 2 sprays NA DAILY [facility] Stop: 11/02/22 08:59 Last Admin: 10/04/22 08:02 Dose: 2 sprays Isosorbide Mononitrate (Isosorbide [place] Extended Rel 30 Mg Tabcr) 30 mg PO QAM [facility] Stop: 11/03/22 08:59 Last Admin: 10/04/22 09:28 Dose: 30 mg Lisinopril (Lisinopril 40 Mg Tab) 40 mg PO QAM [facility] Stop: 11/02/22 08:59 Last Admin: 10/04/22 08:02 Dose: 40 mg Metoprolol Tartrate (Metoprolol Tartrate 25 Mg Tab) 25 mg PO BID [facility] Stop: 11/01/22 20:59 Last Admin: 10/04/22 08:02 Dose: 25 mg Morphine Sulfate (Morphine Sulfate 2 Mg/Ml Carp) 2 mg IV Q30M PRN PRN Reason: Chest Pain Stop: 10/16/22 18:46 Multivitamins (Multivitamin Tab) 1 tab PO QAM MAHAD Stop: 11/02/22 08:59 Last Admin: 10/04/22 08:03 Dose: 1 tab Ondansetron HCl (Ondansetron Inj 2 Mg/Ml 2 Ml Vial) 4 mg IV Q6H PRN PRN Reason: Nausea Stop: 11/01/22 18:46 Polyethylene Glycol (Polyethylene (Miralax) 17 Gm Pack) 17 gm PO DAILY PRN PRN Reason: Constipation Stop: 11/01/22 18:46 Psyllium Hydrophilic Mucilloid (Psyllium Or Guar Gum Fiber Powder Packet) 1 pkt PO DAILY MAHAD Stop: 11/02/22 08:59 Last Admin: 10/04/22 08:00 Dose: 1 pkt Rosuvastatin Calcium (Rosuvastatin Calcium 20 Mg Tab) 40 mg PO QPM [facility] Stop: 11/03/22 20:59 PG Care Time/CCT Total # of Minutes Spent Total Time Spent with Patient: Total time spent is greater than 50% in coordination of care (as documented) at patient's floor/unit and/or counseling patient: Coding Level of Care Code 38609 Subseq Hosp Care Lvl 3 Diagnoses Acute coronary syndrome I24.9 CAD (coronary artery disease), [place] coronary artery I25.10 S/P coronary artery stent placement Z95.5 Hypertension I10 Hypercholesteremia E78.00
--- NOTE | 2022-10-04 14:14 | Discharge Summary ---
Date of Service October 04, 2022 Admission HPI Per Admitting Provider Delvin Holt is a 72-year-old male with past medical history of hypertension and hyperlipidemia is presenting today with left-sided chest pain. Patient was walking his home this morning when he had onset of left-sided chest pain that went between his shoulder blades with numbness down his left arm, possibly right. Initially got worse with exertion while walking upstairs, somewhat alleviated with resting. He had no shortness of breath, palpitations, or lightheadedness with it. He took two 81-mg aspirin tabs. The pain was initially a 7/10, but came down to 2/10 after sublingual nitroglycerin and is 0/10 after Nitropaste is applied. He is currently chest pain-free. 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 He had previously been feeling well without any fever/chills, weight gain and legs or abdomen, shortness of breath, respiratory illness. He was recently diagnosed with Lyme disease and finished a course of oral antibiotics 1.5 weeks ago. He feels he is recovered from this. He notes he has been told he has a murmur of his tricuspid valve, he has had a stress test several months ago done for heart palpitations, which to his [facility] was unremarkable. Initial lab significant for troponin of 43, troponin 1.47, unknown baseline. Repeat troponin is pending. EKG shows first-degree AV block and PVCs, CXR shows mild cardiomegaly without any acute process. Principal Diagnosis Non ST Elevation Myocardial Infarction Discharge Exam Constitutional WD/WN, vitals as above Respiratory normal respiratory effort, lungs clear to auscultation Cardiovascular RRR, no murmur, no edema Gastrointestinal (Abdomen) normal bowel sounds, soft, nontender, no hepatosplenomegaly Skin no rashes, warm and dry Psychiatric A+Ox3, euthymic affect Discharge Data Allergies Allergy/AdvReac Type Severity Reaction Status Date / Time pollen extracts Allergy Intermediate ITCHY Verified 10/02/22 15:52 EYES, SNEEZING, CONGESTION thimerosal Allergy Intermediate EYE Verified 10/02/22 15:52 IRRITATION Consultations 10/02/22 18:47 Consult Cardiology Routine 10/03/22 13:44 Consult Cardiac Rehabilitation Routine 10/04/22 13:47 Consult Cardiac Rehabilitation Routine Procedures Performed Operation Date: 10/03/22 10:30 Actual Procedures s Cineradiography w/Routine Exam - Reagan Modi MD p Cath, Left with Cors and Vent - Reagan Modi MD s Drug Eluting Stent SGl Vessel - Morgan Smith MD s Drug Eluting Stent each ADDTL Vessel - Morgan Smith MD s Fraction Flow [place] SGL Ves - Morgan Smith MD Ordered Studies 10/03/22 10:19 CL Cath Imgs for PACS use only Routine Hospital Course (1) Acute coronary syndrome: Delvin Holt is a 72 year old male admitted to [facility] from D ec - 2021 due to chest pain. He was diagnosed with an acute non-ST elevation myocardial infarction (NSTEMI). Peak high sensitivity troponin I 160.2 pg/ml. He was treated with aspirin, clopidogrel, metoprolol and rosuvastatin. He underwent cardiac catheterization with two drug-eluting stents placed in mid left anterior descending (LAD) artery and mid right posterior descending artery (PDA). His post catheterization course was unremarkable. Nitroglycerin has been prescribed as needed to use for recurrent chest pain. He will follow up with cardiology for cardiac rehabilitation. He was advised to use diclofenac as needed rather than regularly given increased risk of cardiovascular disease with this medication. (2) CAD (coronary artery disease), [place] coronary artery: (3) Left-sided chest pain: (4) Hypertension: (5) Hypercholesteremia: (6) Migraine: (7) Elevated triglycerides with high cholesterol: Total Time Total Time Spent Total Time Spent (In Minutes): 40 Discharge Plan Discharge Items Patient Disposition: Home - Self-Care Reason For Visit: CHEST PAIN Discharge Diagnosis: Heart attack (Non-ST elevation myocardial infarction aka NSTEMI) Activity: Per Instructions section Non-emergency contact: Primary Care Provider and Vending Machine Assembler Call non-emergency contact if: you have any medication questions and your symptoms worsen Follow-up/Referrals: Reagan Modi MD [Physician] - 10/13/22 8:15 am Lorena Magallon PA-C [Primary Care Provider] - 10/19/22 8:40 am (follow up PCP October 19, 2022 @ 8:40am with Dr. Torres. [facility] location ) Diet: Heart Healthy Addtl Attending Provider Instructions: You were admitted to [facility] from October 02 - 2021 due to chest pain. You were diagnosed with an acute non-ST elevation myocardial infarction (NSTEMI) a type of heart attack. You were treated with medications a nd cardiac catheterization with two drug-eluting stents placed in mid left anterior descending (LAD) artery and mid right posterior descending artery (PDA). You were started on antiplatelet medications with aspirin and clopidogrel (Plavix) to stop the stents and your artery blocking up. You were started on metoprolol to reduce strain on your heart. Your statin was switched to a high intensity statin with rosuvastatin. These are all routine medications following a heart attack. Nitroglycerin has been prescribed as needed to use for recurrent chest pain. If you require one recommend calling your filler shredding machine loader to let them know. If you require three without relief recommend calling 911 for an ambulance. Please use diclofenac as needed rather than routinely as this slightly increases your risk of a heart attack. POST CARDIAC CATHETERIZATION ACTIVITY RECOMMENDATIONS: Excess manipulation of the wrist should be avoided for the next 24-48 hours. * No lifting over 2 pounds (approximately a 1/2 gallon of milk) with the utilized arm for 24 hours. * No strenuous activity such as bowling or tennis for 3 days. * Keep the site of the procedure covered with a bandage for 24 hours. *You may shower the day after the procedure. Do not take a tub bath or submerge the puncture site in water for the next 3 days. *Do not operate any motorized equipment for 3 days. SPECIAL CARE INSTRUCTIONS: The site may be slightly bruised and sore following your procedure. Should any of the following occur, contact the Dr. who performed your procedure. 1. Redness/inflammation, swelling, chills, or fever, or colored drainage at procedure site within 3-7 days after your procedure. 2. Coldness, discoloration, ongoing numbness, severe pain, or swelling. Expect mild tingling of hand and tenderness at the puncture site for up to three days. If this persists beyond three days, or other symptoms develop, notify the Dr. who performed your procedure. BLEEDING: If the procedure site on your wrist begins to bleed, do not panic 1. Place 1 or 2 fingers firmly just slightly above the insertion site to stop the bleeding. You may be able to feel your pulse as you hold pressure. 2. Lift your finger after 5 minutes to see if the bleeding has stopped. 3. Once the bleeding has stopped, gently wipe the wrist area clean with a bandage. * If the bleeding from your wrist does not stop after 10 minutes, or if there is a large amount of bleeding or spurting, call 911 (do not drive yourself to the hosp [place]). SKIN IRRITATION: * You may experience some redness and/or swelling in the area where radiation was administered. If any skin irritation occurs, please contact your family physician. FOLLOW UP VISIT: Keep any scheduled doctor appointments. Pending Studies at Discharge: No Stand-Alone Forms: My [facility], Smoking Cessation Medications and DC Order Prescriptions: New aspirin 81 mg tablet,delayed release (DR/EC) 81 mg PO DAILY Qty: 30 0RF metoprolol tartrate 25 mg tablet 25 mg PO BID Qty: 60 0RF nitroglycerin 0.4 mg tablet, sublingual 0.4 mg sublingual Q5M PRN (Reason: chest pain) Qty: 10 0RF Rx Instructions: If you use one call your filler shredding machine loader. If you require 3 call EMS. clopidogrel 75 mg tablet 75 mg PO DAILY Qty: 30 0RF rosuvastatin [Crestor] 40 mg tablet 40 mg PO HS Qty: 30 0RF Continued multivitamin Tablet 1 tab PO QAM lisinopril 40 mg tablet 40 mg PO QAM fluticasone propionate 50 mcg/actuation [place],Suspension 2 spray INTRANASAL DAILY Rx Instructions: administer into each nostril amitriptyline 100 mg tablet 100 mg PO HS psyllium husk 0.52 gram Capsule 0.52 g PO DAILY Changed diclofenac sodium 75 mg Tablet,Delayed Release (Dr/Ec) 75 mg PO BID PRN (Reason: Back pain) Qty: 30 0RF Discontinued pravastatin 40 mg Tablet 40 mg PO HS Discharge Orders: Discharge Order (Routine); Ordered 10/04/22 Ordered By: Reagan Beckford/Other Patient Handouts: Coronary Angioplasty, Coronary Stents, Coronary Angioplasty Stenting Dc Admission Data Admit Date/Time: 10/03/22 14:16 Attending Provider: Reagan Dupree Admit Provider: Reagan Dupree Primary Care Provider: Lorena Magallon Other Providers: Reagan Modi Other Interventions: Discharge Summary Assessment (RN) Last Done: 10/04/22 14:32 Coding Level of Care Code D/C DAY MANAGEMENT >30 MINS Diagnoses Acute coronary syndrome I24.9 CAD (coronary artery disease), [place] coronary artery I25.10 Left-sided chest pain R07.9 Hypertension I10 Hypercholesteremia E78.00 Migraine G43.909 Elevated triglycerides with high cholesterol E78.2
[2022-10-04] MEDS ORDERED: ROSUVASTATIN CALCIUM 20 MG TAB PO SCH (21:00)
--- NOTE | 2022-10-05 06:05 | Electrocardiogram Report ---
Test Reason : Blood Pressure : / mmHG Vent. Rate : 072 BPM Atrial Rate : 072 BPM P-R Int : 188 ms QRS Dur : 100 ms QT Int : 384 ms P-R-T Axes : 062 039 047 degrees QTc Int : 420 ms Normal sinus rhythm Normal ECG When compared with ECG of 02-OCT-2022 14:24, Premature ventricular complexes are no longer Present Confirmed by Reagan Modi ([id number]) on 10/05/2022 6:04:48 AM Referred By: REFERRED SELF Confirmed By:Reagan Modi
--- NOTE | 2022-10-05 06:05 | Electrocardiogram Report ---
Test Reason : Blood Pressure : / mmHG Vent. Rate : 066 BPM Atrial Rate : 066 BPM P-R Int : 180 ms QRS Dur : 094 ms QT Int : 382 ms P-R-T Axes : 026 038 035 degrees QTc Int : 400 ms Normal sinus rhythm Normal ECG When compared with ECG of 03-OCT-2022 09:02, No significant change was found Confirmed by Reagan Modi ([id number]) on 10/05/2022 6:05:07 AM Referred By: REFERRED SELF Confirmed By:Reagan Modi
== END 2022-10-04 14:53 | disposition home or self-care (01) | DRG 247 ==
LOC: ED 14:18 → EDINP 14:18 → SUATTDRO 16:04 → EDINP 10-03 10:14 → 1E 10-03 13:11 → SUATTDRO 10-03 14:16